=== PATIENT | female | born 1950 | race Caucasian/White ===

== ENCOUNTER 2017-08-19 05:28 | Emergency (ER) | payer OTHER ==
[~2017-08-19] VITALS: Ht 152.4 cm; Wt 90.7 kg
[2017-08-19] MEDS ORDERED: METF500 PO (05:42)
[2017-08-19] MEDS ORDERED: LISI5 PO (05:42)
[2017-08-19] MEDS ORDERED: FURO20 PO (05:42)
[2017-08-19] MEDS ORDERED: OMEPRAZOLE MAGN20 MG PO (05:43)
[2017-08-19] MEDS ORDERED: VENL25 PO (05:43)
[2017-08-19] MEDS ORDERED: POTCHL10ER PO (05:43)
[2017-08-19 06:17] LABS: BASOPHILS ABSOLUTE AUTO 0.05 K/mm3 (0.00-0.23); BASOPHILS PERCENT AUTO 1 % (0-2); EOSINOPHILS ABSOLUTE AUTO 0.23 K/mm3 (0.00-0.68); EOSINOPHILS PERCENT AUTO 3 % (0-6); Hematocrit 36.2 % (33.0-51.0); Hemoglobin 11.1 g/dL (11.5-16.0); IMMATURE GRAN ABSOLUTE AUTO 0.07 K/mm3 (0.00-0.10); IMMATURE GRAN PERCENT AUTO 1 % (0-1); LYMPHOCYTES ABSOLUTE AUTO 2.48 K/mm3 (0.84-5.20); LYMPHOCYTES PERCENT AUTO 31 % (21-46); MONOCYTES ABSOLUTE AUTO 0.69 K/mm3 (0.16-1.47); MONOCYTES PERCENT AUTO 9 % (4-13); Mean Corpuscular HGB 26.2 pg (26.0-34.0); Mean Corpuscular HGB Conc 30.7 g/dL (31.5-36.5); Mean Corpuscular Volume 85 fL (80-100); Mean Platelet Volume 10.6 fL (9.1-12.4); NEUTROPHILS ABSOLUTE AUTO 4.49 K/mm3 (1.96-9.15); NEUTROPHILS PERCENT AUTO 56 % (41-73); Platelet Count 346 K/mm3 (150-400); RDW Coefficient Variation 14.4 % (11.7-14.2); RDW Standard Deviation 44.5 fL (35.1-46.3); Red Blood Cell Count 4.24 M/mm3 (3.80-5.20); White Blood Cell Count 8.01 K/mm3 (4.00-11.30)
[2017-08-19 06:43] LABS: Alanine Aminotransfer (ALT/SGP 23 U/L (12-78); Albumin, Blood 3.3 g/dL (3.4-5.0); Albumin/Globulin Ratio 0.8 (0.8-1.8); Alk Phos 81 U/L (50-136); Anion Gap 7 mmol/L (6-16); Aspartate Aminotrans (AST/SGOT 11 U/L (12-37); Bilirubin, Total 0.2 mg/dL (0.1-1.0); Blood Urea Nitrogen 16 mg/dL (8-24); CO2, Blood 24 mmol/L (21-32); Calcium, Blood 8.8 mg/dL (8.5-10.1); Chloride, Blood 106 mmol/L (98-108); Creatinine, Blood 0.64 mg/dL (0.40-1.00); Glomerular Filtration Rate >60 (60-); Glucose, Blood 115 mg/dL (70-99); Potassium, Blood 4.2 mmol/L (3.5-5.5); Sodium, Blood 137 mmol/L (136-145); Total Protein, Blood 7.3 g/dL (6.4-8.2); Troponin I <0.015 ng/mL (0.000-0.040)
== END 2017-08-19 07:56 | disposition home or self-care (01) ==
LOC: ER 05:28
PROVIDERS: Emergency Medicine
DX: R60.0 Localized edema (principal); R07.89 Other chest pain; Z88.5 Allergy status to narcotic agent; Z79.899 Other long term (current) drug therapy; Z79.84 Long term (current) use of oral hypoglycemic drugs
CPT/HCPCS: 36415; 71046; 80053; 83880; 84484; 85025; 93005; 93010; 99284

== ENCOUNTER 2018-03-14 12:10 | Observation (INO) | payer OTHER ==
[~2018-03-14] VITALS: Ht 152.4 cm; Wt 108.5 kg
[~2018-03-14 12:10] MED LIST: FURO20 PO; LISI5 PO; METF500 PO; OMEPRAZOLE MAGN20 MG PO; POTCHL10ER PO; VENL25 PO
[2018-03-14 12:58] LABS: BASOPHILS ABSOLUTE AUTO 0.07 K/mm3 (0.00-0.23); BASOPHILS PERCENT AUTO 1 % (0-2); EOSINOPHILS ABSOLUTE AUTO 0.15 K/mm3 (0.00-0.68); EOSINOPHILS PERCENT AUTO 2 % (0-6); Hematocrit 37.5 % (33.0-51.0); Hemoglobin 11.8 g/dL (11.5-16.0); IMMATURE GRAN ABSOLUTE AUTO 0.09 K/mm3 (0.00-0.10); IMMATURE GRAN PERCENT AUTO 1 % (0-1); LYMPHOCYTES PERCENT AUTO 27 % (21-46); MONOCYTES ABSOLUTE AUTO 0.67 K/mm3 (0.16-1.47); MONOCYTES PERCENT AUTO 7 % (4-13); Mean Corpuscular HGB 26.5 pg (26.0-34.0); Mean Corpuscular HGB Conc 31.5 g/dL (31.5-36.5); Mean Corpuscular Volume 84 fL (80-100); Mean Platelet Volume 10.4 fL (9.1-12.4); NEUTROPHILS ABSOLUTE AUTO 5.86 K/mm3 (1.96-9.15); NEUTROPHILS PERCENT AUTO 63 % (41-73); Platelet Count 391 K/mm3 (150-400); RDW Coefficient Variation 14.8 % (11.7-14.2); RDW Standard Deviation 45.1 fL (35.1-46.3); Red Blood Cell Count 4.46 M/mm3 (3.80-5.20); White Blood Cell Count 9.34 K/mm3 (4.00-11.30)
[2018-03-14] MEDS ORDERED: HYDCHL25 PO (13:10)
[2018-03-14] MEDS ORDERED: VENL37.5 PO (13:10)
[2018-03-14] MEDS ORDERED: CONTRAVE ER 8-1 EACH PO (13:11)
[2018-03-14] MEDS ORDERED: TOPI50 PO (13:11)
[2018-03-14] MEDS ORDERED: Adipex-P37.5 M1 PO (13:12)
[2018-03-14 13:29] LABS: Alanine Aminotransfer (ALT/SGP 20 U/L (12-78); Albumin, Blood 3.5 g/dL (3.4-5.0); Albumin/Globulin Ratio 0.9 (0.8-1.8); Alk Phos 96 U/L (50-136); Anion Gap 7 mmol/L (6-16); Aspartate Aminotrans (AST/SGOT 9 U/L (12-37); Bilirubin, Total 0.5 mg/dL (0.1-1.0); Blood Urea Nitrogen 23 mg/dL (8-24); Bun/Creatinine Ratio 33.3 (12.0-20.0); CO2, Blood 26 mmol/L (21-32); Calcium, Blood 8.9 mg/dL (8.5-10.1); Chloride, Blood 105 mmol/L (98-108); Creatinine, Blood 0.69 mg/dL (0.40-1.00); Globulin, Blood 3.9 g/dL (2.2-4.0); Glomerular Filtration Rate >60 (60-); Glucose, Blood 118 mg/dL (70-99); Potassium, Blood 3.8 mmol/L (3.5-5.5); Sodium, Blood 138 mmol/L (136-145); Total Protein, Blood 7.4 g/dL (6.4-8.2)
[2018-03-14] MEDS ORDERED: LISI5 PO (17:53)
[2018-03-14] MEDS ORDERED: Prilosec Otc20 MG PO (17:53)
[2018-03-14] MEDS ORDERED: ASPI81CH PO (17:54)
[2018-03-15 04:55] LABS: Hematocrit 36.5 % (33.0-51.0); Hemoglobin 11.6 g/dL (11.5-16.0); Mean Corpuscular HGB 26.8 pg (26.0-34.0); Mean Corpuscular HGB Conc 31.8 g/dL (31.5-36.5); Mean Corpuscular Volume 84 fL (80-100); Mean Platelet Volume 10.3 fL (9.1-12.4); Platelet Count 387 K/mm3 (150-400); RDW Coefficient Variation 14.7 % (11.7-14.2); RDW Standard Deviation 45.6 fL (35.1-46.3); Red Blood Cell Count 4.33 M/mm3 (3.80-5.20); White Blood Cell Count 10.36 K/mm3 (4.00-11.30)
== END 2018-03-15 17:43 | disposition home or self-care (01) ==
LOC: ER 12:10 → MEDS 12:11
PROVIDERS: Emergency Medicine; Internal Medicine; Internal Medicine Gastroenterology
PROC: 0DBE8ZX Excision of Large Intestine, Via Natural or Artificial Opening Endoscopic, Diagnostic (ICD-10-PCS; principal; 2018-03-15 11:45)
DX: K63.3 Ulcer of intestine (principal); K57.30 Diverticulosis of large intestine without perforation or abscess without bleeding; K92.1 Melena; I10 Essential (primary) hypertension; R00.0 Tachycardia, unspecified; Z88.5 Allergy status to narcotic agent; Z79.899 Other long term (current) drug therapy; Z79.84 Long term (current) use of oral hypoglycemic drugs
CPT/HCPCS: 36415; 74176; 80053; 82272; 85025; 85027; 86850; 86900; 86901; 88305; 96374; 96376; 99285-25; G0378; J2250; J2405; J3010; J7120

== ENCOUNTER 2021-03-24 00:55 | Inpatient (IN) | payer OTHER ==
[~2021-03-24] VITALS: Ht 154.9 cm; Wt 107.9 kg
[~2021-03-24 00:55] MED LIST changes: +ASPI81CH PO; +Adipex-P37.5 M1 PO; +CONTRAVE ER 8-1 EACH PO; +HYDCHL25 PO; +Prilosec Otc20 MG PO; +TOPI50 PO; +VENL75ER PO
[2021-03-24 02:16] LABS: BASOPHILS ABSOLUTE AUTO 0.01 K/mm3 (0.00-0.23); BASOPHILS PERCENT AUTO 0 % (0-2); EOSINOPHILS PERCENT AUTO 0 % (0-6); Hematocrit 41.7 % (33.0-51.0); Hemoglobin 13.4 g/dL (11.5-16.0); Mean Corpuscular HGB 27.3 pg (26.0-34.0); Mean Corpuscular HGB Conc 32.1 g/dL (31.5-36.5); Mean Corpuscular Volume 85 fL (80-100); Mean Platelet Volume 10.7 fL (9.1-12.4); Platelet Count 221 K/mm3 (150-400); RDW Standard Deviation 46.8 fL (35.1-46.3)
[2021-03-24 02:25] LABS: IMMATURE GRAN ABSOLUTE AUTO 0.07 K/mm3 (0.00-0.10); IMMATURE GRAN PERCENT AUTO 1 % (0-1); LYMPHOCYTES ABSOLUTE AUTO 0.76 K/mm3 (0.84-5.20); LYMPHOCYTES PERCENT AUTO 11 % (21-46); MONOCYTES ABSOLUTE AUTO 0.52 K/mm3 (0.16-1.47); MONOCYTES PERCENT AUTO 8 % (4-13); NEUTROPHILS ABSOLUTE AUTO 5.44 K/mm3 (1.96-9.15); NEUTROPHILS PERCENT AUTO 80 % (41-73)
[2021-03-24 02:45] LABS: Alanine Aminotransfer (ALT/SGP 34 U/L (12-78); Albumin/Globulin Ratio 0.7 (0.8-1.8); Alk Phos 86 U/L (50-136); Anion Gap 4 mmol/L (6-16); Aspartate Aminotrans (AST/SGOT 42 U/L (12-37); Bilirubin, Total 0.3 mg/dL (0.1-1.0); Blood Urea Nitrogen 15 mg/dL (8-24); Bun/Creatinine Ratio 20.7 (12.0-20.0); CO2, Blood 26 mmol/L (21-32); Calcium, Blood 9.1 mg/dL (8.5-10.1); Chloride, Blood 104 mmol/L (98-108); Creatinine, Blood 0.73 mg/dL (0.40-1.00); Globulin, Blood 4.5 g/dL (2.2-4.0); Glomerular Filtration Rate >60 (60-); Glucose, Blood 151 mg/dL (70-99); Potassium, Blood 3.9 mmol/L (3.5-5.5); Sodium, Blood 134 mmol/L (136-145); Total Protein, Blood 7.5 g/dL (6.4-8.2); Troponin I <0.015 ng/mL (0.000-0.040)
[2021-03-24 07:41] LABS: BASOPHILS ABSOLUTE AUTO 0.01 K/mm3 (0.00-0.23); BASOPHILS PERCENT AUTO 0 % (0-2); EOSINOPHILS PERCENT AUTO 0 % (0-6); Hematocrit 41.6 % (33.0-51.0); Hemoglobin 13.3 g/dL (11.5-16.0); IMMATURE GRAN ABSOLUTE AUTO 0.05 K/mm3 (0.00-0.10); IMMATURE GRAN PERCENT AUTO 1 % (0-1); LYMPHOCYTES ABSOLUTE AUTO 1.25 K/mm3 (0.84-5.20); LYMPHOCYTES PERCENT AUTO 20 % (21-46); MONOCYTES ABSOLUTE AUTO 0.43 K/mm3 (0.16-1.47); MONOCYTES PERCENT AUTO 7 % (4-13); Mean Corpuscular HGB 27.3 pg (26.0-34.0); Mean Corpuscular Volume 85 fL (80-100); Mean Platelet Volume 10.5 fL (9.1-12.4); NEUTROPHILS ABSOLUTE AUTO 4.54 K/mm3 (1.96-9.15); NEUTROPHILS PERCENT AUTO 72 % (41-73); Platelet Count 216 K/mm3 (150-400); RDW Standard Deviation 47.2 fL (35.1-46.3); Red Blood Cell Count 4.87 M/mm3 (3.80-5.20); White Blood Cell Count 6.28 K/mm3 (4.00-11.30)
[2021-03-24 08:06] LABS: Alanine Aminotransfer (ALT/SGP 29 U/L (12-78); Albumin, Blood 2.9 g/dL (3.4-5.0); Albumin/Globulin Ratio 0.7 (0.8-1.8); Alk Phos 83 U/L (50-136); Anion Gap 5 mmol/L (6-16); Aspartate Aminotrans (AST/SGOT 42 U/L (12-37); Bilirubin, Total 0.3 mg/dL (0.1-1.0); Blood Urea Nitrogen 15 mg/dL (8-24); Bun/Creatinine Ratio 20.9 (12.0-20.0); CO2, Blood 27 mmol/L (21-32); Calcium, Blood 8.4 mg/dL (8.5-10.1); Chloride, Blood 104 mmol/L (98-108); Creatinine, Blood 0.72 mg/dL (0.40-1.00); Globulin, Blood 4.4 g/dL (2.2-4.0); Glomerular Filtration Rate >60 (60-); Glucose, Blood 133 mg/dL (70-99); Potassium, Blood 3.9 mmol/L (3.5-5.5); Sodium, Blood 136 mmol/L (136-145); Total Protein, Blood 7.3 g/dL (6.4-8.2)
--- NOTE | 2021-03-24 11:06 | NUR ---
makes needs known, call light with in reach, ate breakfast, reported to daughter richard [phone], patient has steady gait to the bathroom eith nc extension cord, vss, 7l o2 90%, pleasant to care, wctm
--- NOTE | 2021-03-24 19:16 | NUR ---
MAKES NEEDS KNOWN, CALL LIGHT WIHT IN REACH, REPORTS TYLENOL COVERED BACK PAIN TODAY, LS INSPIRATORY WHEEZES, WCTM
--- NOTE | 2021-03-25 05:44 | NUR ---
END OF SHIFT SUMMARY: AT AROUND 0420 PT HAD EPISODE OF ANXIETY. O2 SAT DROPPED TO 82% ON 7LNC. PT HYPERVENTILATING. PT PUT ON A NON REBREATHER AT 15L. SATS UP TO 92% HOSPITALIST NOTIFIED. ANTI ANXIETY MEDS GIVEN, COUGH MEDS GIVEN AND NASAL SPRAY FOR DRYNESS. PT RESTING AT THIS TIME.
[2021-03-25 05:45] LABS: Hematocrit 44.3 % (33.0-51.0); Mean Corpuscular HGB 27.2 pg (26.0-34.0); Mean Corpuscular HGB Conc 31.6 g/dL (31.5-36.5); Mean Corpuscular Volume 86 fL (80-100); Mean Platelet Volume 10.5 fL (9.1-12.4); Platelet Count 251 K/mm3 (150-400); RDW Standard Deviation 47.4 fL (35.1-46.3); Red Blood Cell Count 5.15 M/mm3 (3.80-5.20); White Blood Cell Count 5.92 K/mm3 (4.00-11.30)
[2021-03-25 06:13] LABS: Anion Gap 5 mmol/L (6-16); Blood Urea Nitrogen 19 mg/dL (8-24); Bun/Creatinine Ratio 27.8 (12.0-20.0); CO2, Blood 28 mmol/L (21-32); Calcium, Blood 9.2 mg/dL (8.5-10.1); Chloride, Blood 102 mmol/L (98-108); Creatinine, Blood 0.68 mg/dL (0.40-1.00); Glomerular Filtration Rate >60 (60-); Glucose, Blood 145 mg/dL (70-99); Potassium, Blood 3.5 mmol/L (3.5-5.5); Sodium, Blood 135 mmol/L (136-145)
--- NOTE | 2021-03-25 18:05 | NUR ---
MAKES NEEDS KNOW, GROIN FOLDS REDDENED AND MOIST, CREAM TO AREA, STAND BY ASSIST, SHOWERED TODAY, COMPLAINS OF BACK PAIN, MEDICATED WITH ROXYCODONE AND TYLENOL, VSS, WCTM
--- NOTE | 2021-03-26 05:06 | NUR ---
END OF SHIFT SUMMARY: PT ANXIUS AT BEGINNING OF SHIFT AND COMPLAINING OF DRY NOSE AND "THROAT SORE FROM COUGHING" PT GIVEN ANTI ANXIETY AND COUGH MEDS. PAIN MEDICINE GIVEN FOR BACK PAIN. PT IS RESTING COMFORTABLY AT THIS TIME.
--- NOTE | 2021-03-26 17:04 | NUR ---
SHIFT SUMMARY PATIENT ALERT AND ORIENTATED X4. PATIENT IS PLEASENT AND CALLS APPROPRIATELY. PATIENT WAS ON 8L 02 AT START OF SHIFT AND HAS BEEN CHANGED TO AN AIRVO AT 40LITERS AND 35 PERCENT. PATIENT SATTING LOW 90S ON NEW O2 SETTING. VITAL SIGNS REVIEWED. NO OTHER ACUTE CHANGES THIS SHIFT.
--- NOTE | 2021-03-27 05:43 | NUR ---
END OF SHIFT REPORT: PT IS A&OX4. PT CONTINUES TO DESAT TO 77-83% WHILE AT REST. RESPIRATORY NOTIFIED AND HOSPITALIST. ORDER FOR CPAP/BIPAP INITIATED. PT PUT ON CPAP 12 AT 80%. SATS AT 93-98% PT IS RESTING AFTER BEING GIVEN ANTIANXIETY MEDICINE.
--- NOTE | 2021-03-27 10:33 | NUR ---
TRANSER NOTE PATIENT TRANSFERRED FROM [facility] TO PCU 226. PATIENT TRANSFERRED DUE TO RESPIRATORY DISTRESS ON CPAP. PATIENT REPORT DONE AT BEDSIDE WITH LAMONT STRATTON.
[2021-03-27 11:11] LABS: Source, Urine Catheter
[2021-03-27 11:20] LABS: Appearance, Urine Clear (Clear); Blood, Urine Neg (Neg); Color, Urine Yellow (P-Yellow); Glucose Qualitative, Urine Neg (Neg); Ketones, Urine Neg (Neg); Leukocyte Esterase, Urine 1+ (Neg); Nitrite, Urine Neg (Neg); Protein, Urine 2+ (Neg); Urobilinogen, Urine 1+ (Normal)
[2021-03-27 11:43] LABS: Bilirubin, Urine 1+ (Neg)
[2021-03-27 11:44] LABS: Bacteria Few /hpf; Mucus Light (0-Heavy); Red Blood Cells, Urine 0-2 /hpf (0-2); Squamous Epithelial Cells Mod /hpf (Few)
[2021-03-27 12:51] LABS: Hematocrit 40.4 % (33.0-51.0); Hemoglobin 13.1 g/dL (11.5-16.0); Mean Corpuscular HGB 27.9 pg (26.0-34.0); Mean Corpuscular HGB Conc 32.4 g/dL (31.5-36.5); Mean Corpuscular Volume 86 fL (80-100); Mean Platelet Volume 10.7 fL (9.1-12.4); Platelet Count 316 K/mm3 (150-400); RDW Coefficient Variation 14.4 % (11.7-14.2); RDW Standard Deviation 45.4 fL (35.1-46.3)
[2021-03-27 12:57] LABS: Bicarbonate Venous 26.6 mmol/L (24.0-30.0); PCO2 Venous 49.9 mmHg (38-42); PO2 Venous 44.5 mmHg (38-42); pH Blood Venous 7.38 (7.34-7.37)
[2021-03-27 13:24] LABS: Magnesium, Blood 1.3 mg/dL (1.6-2.4)
[2021-03-27 13:25] LABS: Albumin, Blood 2.6 g/dL (3.4-5.0); Anion Gap 6 mmol/L (6-16); Blood Urea Nitrogen 24 mg/dL (8-24); Bun/Creatinine Ratio 29.1 (12.0-20.0); CO2, Blood 30 mmol/L (21-32); Calcium, Blood 9.7 mg/dL (8.5-10.1); Chloride, Blood 98 mmol/L (98-108); Creatinine, Blood 0.82 mg/dL (0.40-1.00); Glomerular Filtration Rate >60 (60-); Glucose, Blood 131 mg/dL (70-99); Phosphorus, Blood 3.3 mg/dL (2.5-4.9); Potassium, Blood 3.5 mmol/L (3.5-5.5); Sodium, Blood 134 mmol/L (136-145)
[2021-03-27 16:50] LABS: PCO2 Arterial 43.5 mmHg (35-45); PO2 Arterial 54.7 mmHg (80-100); pH Blood Arterial 7.44 (7.35-7.45)
--- NOTE | 2021-03-27 17:20 | NUR ---
TRANSFER INTO ICU FROM PCU THIS RN GAVE REPORT TO VIRAL AVILA. PT IS ON PRECEDEX 0.4. PT IS ON CPAP FOR TRANSFER WITH SATS 86-91%. POWERGLIDE TIA INFUSING. PT TRANSFERRED TO ICU 2 AND STAFF AT THE BEDSIDE WITH PT.
--- NOTE | 2021-03-27 18:58 | NUR ---
PT EMERGENTY TRANSFERED TO ICU 2 @ 1700. PT COVID+ ON CPAP WITH FIO2 100%-ABG WITH PO2 IN 50'S. DR. CHILDS SUMMONED TO THE BEDSIDE.1713: PT MED WITH VERSED 3 MG IVP IN PREP FOR RSI. 1718: PROPOFOL 70 MCG IVP G[address] BY DR. CHILDS IN PREP FOR RSI. 1720: ROCURONIUM 50 MG IVP GIVEN FOR RSI. 1723: PT NOT PARALYZED DESPITE ROCURONIUM-SPO2 69% AND PT BITING ON ETT-DIFFICULT TO VENTILATE. MED WITH FENTANYL 100 MCG IVP X1 AND VERSED 4 MG IVP X 1. ETT 8.0/ 23 @ LIP. AC 22, TV 300, PEEP 15, FIO2 100%-SATS TRENDING IN THE 70'S. PT BECAME HYPOTENSIVE-NS 1 LITER BOLUS GIVEN. LEVOPHED DRIP INITIATED-TITRATING TO MAP 60-65. RIGHT SUBCLAVIAN QUAD LUMEN CENTRAL LINE INSERTED BY DR. CHILDS. PORTABLE CXR DONE AND ETT AND RSC LINE PLACEMENT CONFIRMED. PT REMAINED HYPOXIC WITH SATS IN THE 70'S- ROCURONIUM DRIP INITIATED.PT PRONED AND SATS IMMEDIATELY UP TO UPPER 90'S.
--- NOTE | 2021-03-27 19:58 | NUR ---
Assumed care. Report recieved from pipe RN. Pt proned in bed, paralyzed and sedated on ventilator. Vent settings: AC/VC 26, TV350, Peep18, Fi02 80%. OG tube in place, low intermittent suction. Pt has R/IJ central line. IV pump settings: Rocuronium 5 mcg/kg/min, propofol 30 mcg/kg/min, precedex 0.7 mcg/kg/hr, levophed 2 mcg/min, NS 75 ml/hr. Pantoja catheter in place, draining brandon/yellow urine. No acute needs noted at this time, will continue to monitor.
[2021-03-27 20:24] LABS: PCO2 Arterial 45.1 mmHg (35-45); PO2 Arterial 91.6 mmHg (80-100); pH Blood Arterial 7.38 (7.35-7.45)
[2021-03-28 04:55] LABS: Hematocrit 41.5 % (33.0-51.0); Hemoglobin 13.1 g/dL (11.5-16.0); Mean Corpuscular HGB 27.1 pg (26.0-34.0); Mean Corpuscular HGB Conc 31.6 g/dL (31.5-36.5); Mean Corpuscular Volume 86 fL (80-100); Mean Platelet Volume 10.6 fL (9.1-12.4); Platelet Count 276 K/mm3 (150-400); RDW Coefficient Variation 14.5 % (11.7-14.2); RDW Standard Deviation 46.1 fL (35.1-46.3); Red Blood Cell Count 4.83 M/mm3 (3.80-5.20); White Blood Cell Count 15.03 K/mm3 (4.00-11.30)
[2021-03-28 05:17] LABS: Albumin, Blood 2.3 g/dL (3.4-5.0); Anion Gap 5 mmol/L (6-16); Blood Urea Nitrogen 17 mg/dL (8-24); Bun/Creatinine Ratio 22.9 (12.0-20.0); CO2, Blood 28 mmol/L (21-32); Calcium, Blood 8.6 mg/dL (8.5-10.1); Chloride, Blood 104 mmol/L (98-108); Creatinine, Blood 0.74 mg/dL (0.40-1.00); Glomerular Filtration Rate >60 (60-); Glucose, Blood 210 mg/dL (70-99); Magnesium, Blood 2.1 mg/dL (1.6-2.4); Phosphorus, Blood 2.6 mg/dL (2.5-4.9); Sodium, Blood 137 mmol/L (136-145)
--- NOTE | 2021-03-28 07:16 | NUR ---
Shift summary. Pt continues on ventilator, paralyzed, sedated. Ventilator settings: AC/VC 26/350/15/50%. OG tube in place, awaiting XRAY placement confirmation. R/IJ central line in place, IV pump settings: Rocuronium 5 mcg/kg/min, precedex 0.7 mcg/kg/hr, propofol 30 mcg/kg/min, levophed on SB, NS at 75 ml/hr. Pantoja catheter in place, draining brandon urine. Rectal thermometer in place, pt peak temp 101.5, placed fan in room, pt temp currently 100.4. See shift assessment for further details, report given to pipe STRATTON.
--- NOTE | 2021-03-28 08:38 | NUR ---
CARE ASSUMED 0700 Pt intubated and sedated. Vent settings: AC VC 26/350/14/50%, SPO2 94%. LS clear/dim. Pt currently proned. Propofol GTT 30 mcg/kg/min, precedex 0.7 mcg/kg/hr, and Rocuronium 5 mcg//kg/min. TOF 0/4, pts BIS monitor not reading, will attempt to fix again. Levophed on SB, MAP > 65. NS @ [address] Otero. OG tube to LIS. Temp martinez in place (brandon 200 ml of output), temp of 100.4. NSR HR 70's.
--- NOTE | 2021-03-28 18:17 | NUR ---
Shift Summary Pt intubated and sedated. Vent Settings: AC 26/300/14/75%, FIO2 > 90%. Propofol GTT 30 mcg/kg/min and Precedex 0.5 mcg/kg/h, and Rocuronium 5 mcg/kg/min. TOF is 0/4. BIS score 30's. HR 60's and BP stable. When patient unproned around 1227 and SPO2 decreased to 53%, Dr. Schafer at bedside and vent settings changed, FIO2 increased to 100%, PEEP increased from 10 to 14. Pt recovered quickly after changes to SPO2 96% Will report to oncoming shift. Spoke to patients daughter and updated twice.
--- NOTE | 2021-03-28 23:19 | NUR ---
ASSUMED CARE AT 1900 PT LAYING IN BED INTUBATED WITH VENT SETTINGS AC 26, TV 300, PEEP 14, FIO2 75%; SCANT SECREATIONS FROM ETT. PT SEDATED AND PARALIZED; ROCURONIUM INFUSING AT 5MCG/KG/MIN, TOF 0/4; PROPOFOL INFUSING AT 25MCG/KG/MIN, BIS MID 30'S; PRECEDEX INFUSING AT 0.5MCG/KG/HR. TEMP 101.3, ICE PACKS IN PLACE; PLAN TO GIVE MORE TYLENOL WHEN AVAILABLE. HR 60'S. SBP 130'S. PIVOT INFUSING AT 20ML/HR WITH 30ML WATER FLUSHES Q4HR. IBRAHIM IN PLACE AND DRAINING TO GRAVITY. RT SUBCLAVIAN CENTRAL LINE IN PLACE, DRESSING C/D/I. SEE SHIFT ASSESSMENT FOR FULL ASSESSMENT. PT PRONED AT 1999 WITH 2 PT'S, RT, AND THIS RN.
[2021-03-29 05:10] LABS: Hematocrit 39.9 % (33.0-51.0); Hemoglobin 12.3 g/dL (11.5-16.0); Mean Corpuscular HGB 27.1 pg (26.0-34.0); Mean Corpuscular HGB Conc 30.8 g/dL (31.5-36.5); Mean Corpuscular Volume 88 fL (80-100); Mean Platelet Volume 11.2 fL (9.1-12.4); Platelet Count 288 K/mm3 (150-400); RDW Coefficient Variation 14.6 % (11.7-14.2); RDW Standard Deviation 47.4 fL (35.1-46.3); Red Blood Cell Count 4.54 M/mm3 (3.80-5.20)
[2021-03-29 05:40] LABS: Anion Gap 2 mmol/L (6-16); Blood Urea Nitrogen 24 mg/dL (8-24); Bun/Creatinine Ratio 37.6 (12.0-20.0); CO2, Blood 31 mmol/L (21-32); Calcium, Blood 8.7 mg/dL (8.5-10.1); Chloride, Blood 108 mmol/L (98-108); Creatinine, Blood 0.64 mg/dL (0.40-1.00); Glomerular Filtration Rate >60 (60-); Glucose, Blood 238 mg/dL (70-99); Magnesium, Blood 2.4 mg/dL (1.6-2.4); Phosphorus, Blood 1.8 mg/dL (2.5-4.9); Potassium, Blood 3.7 mmol/L (3.5-5.5); Sodium, Blood 141 mmol/L (136-145)
[2021-03-29 06:07] LABS: BAND PERCENT MAN 11 % (0-8); BASOPHILS PERCENT MAN 0 % (0-2); EOSINOPHILS PERCENT MAN 0 % (0-6); LYMPHOCYTES ABSOLUTE MAN 0.75 K/mm3 (0.84-5.20); LYMPHOCYTES PERCENT MAN 7 % (21-46); MONOCYTES PERCENT MAN 1 % (4-13); MYELOCYTE PERCENT MAN 1 % (0-0); NEUTROPHILS ABSOLUTE MAN 9.82 K/mm3 (1.96-9.15); SEG NEUTROPHILS PERCENT MAN 80 % (41-73); TOTAL CELLS COUNTED 100
--- NOTE | 2021-03-29 06:15 | NUR ---
UPDATE NOTIFIED DR JANE OF [facility] 1.8 THIS AM. NEW ORDERS PROVIDED FOR 30MM OF POTASSIUM PHOS IV X1.
--- NOTE | 2021-03-29 06:25 | NUR ---
END OF SHIFT SUMMARY NO ACUTE EVENTS OVERNIGHT. PT CONT TO BE INTUBATED WITH VENT SETTINGS AC 26, TV 300, PEEP 14, FIO2 85%; SCANT TO NO ETT SECREATIONS NOTED; PT PRONED SINCE 1999. PT PARALIZED AND SEDATED; ROCURONIUM INFUSING AT 3MCG/KG/MIN, TOF 1/4; PROPOFOL INFUSING AT 15MCG/KG/MIN, BIS 35-55; PRECEDEX INFUSING AT 0.5MCG/KG/HR. MAX TEMP 101.4; PRN TYLENOL GIVEN AND HELPFUL, TEMP NOW 100.4. HR 70-80'S. SBP 120-130'S. PIVOT INFUSING VIA OG AT 30ML/HR (GOAL) WITH 30ML WATER FLUSHES Q4HR. IBRAHIM IN PLACE AND DRAINING TO GRAVITY. CENTRAL LINE TO RT SUBCLAVIAN DRESSING C/D/I. WILL REPORT TO AM RN WHEN AVAILABLE.
--- NOTE | 2021-03-29 07:30 | NUR ---
Received report from Theresa STRATTON. Patient is intubated, sedated, and paralyzed. She has 8.0 and 25 cm at teeth with vent settings of 26/300/80/14 and sats >90%. He has BIS 35-45 TO4 07/19. Patient has RIJ infusing Precedex at 0.5 mcg/kg/hr, Propofol 15 mcg/kg/min, NS TKO, Rocoironium at 3 mcg/min. She has 14Fr martinez draining to gravity light brandon colored urine. She has rectal temp probe with temp 100.2, ice packs in AC's bilaterally. She has OG in place with Pivot 1.5 at 30 ml/hr and 30 ml water flushes Q4. Patient proned until noon and no restraints in place.
--- NOTE | 2021-03-29 09:30 | NUR ---
Patient remains sedated and intubated. Dr Schafer and Dr Otero by and assessed with no new orders. VSS, See EMR. Patient remains proned and head to right side. Good urine output with green tint. No changes to vent or gtt's.
--- NOTE | 2021-03-29 10:00 | NUR ---
Dr Otero and Dr Schafer by and assessed patient and stopped Rocironium and bilateral soft wrist restraints applied. No changes to vent or any other gtt changes. VSS, see EMR. Patient remains proned.
--- NOTE | 2021-03-29 13:00 | NUR ---
Patient un-proned and needed to incease Propofol to 25 mcg/kg/min, Precedex to 0.7 mcg/kg/hr. FiO2 increased to 100% and sats 88-90%. Tongue swollen from proning. Repositioned to left side. Rt in room monitoring settings.
--- NOTE | 2021-03-29 16:00 | NUR ---
Patient has been doing well with increased sedation and adding Fentanyl. FiO2 at 95% with sats 94%. Propofol at 25 mcg/kg/min, Precedex at 0.7 mcg/kg/hr, NS TKO, Fentanyl at 50 mcg/hr. Vent settings at 20/300/95/14.
--- NOTE | 2021-03-29 18:30 | NUR ---
8.0 ET and 25 cm at teeth, Vent settings 20/300/95/14, and sats 95%. RIJ infusing Propofol at 25 mcg/kg/min, Fentanyl 50 mcg/hr, Precedex at 0.7 mcg/kg/hr, and NS TKO. Patient has good output through patent 14 fr martinez. Moderate secretions from ET and oral. CL dressing changed earlier on right upper chest.
--- NOTE | 2021-03-29 22:44 | NUR ---
DR CRESPO CALLED REGARDING PT'S FEVER OF 102.4 THAT IS NOT RESPONDING TO TYLENOL, ICE PACKS OR FAN. ORDER FOR IBUPROPHEN RECEIVED.
--- NOTE | 2021-03-30 01:30 | NUR ---
COOLING BLANKET PLACED ON PT.
[2021-03-30 05:01] LABS: BASOPHILS ABSOLUTE AUTO 0.03 K/mm3 (0.00-0.23); BASOPHILS PERCENT AUTO 0 % (0-2); EOSINOPHILS PERCENT AUTO 0 % (0-6); Hematocrit 39.3 % (33.0-51.0); Hemoglobin 11.8 g/dL (11.5-16.0); IMMATURE GRAN PERCENT AUTO 3 % (0-1); LYMPHOCYTES ABSOLUTE AUTO 0.72 K/mm3 (0.84-5.20); LYMPHOCYTES PERCENT AUTO 6 % (21-46); MONOCYTES PERCENT AUTO 8 % (4-13); Mean Corpuscular HGB 26.9 pg (26.0-34.0); Mean Corpuscular Volume 90 fL (80-100); Mean Platelet Volume 11.6 fL (9.1-12.4); NEUTROPHILS ABSOLUTE AUTO 10.26 K/mm3 (1.96-9.15); NEUTROPHILS PERCENT AUTO 83 % (41-73); Platelet Count 294 K/mm3 (150-400); RDW Coefficient Variation 14.6 % (11.7-14.2); RDW Standard Deviation 48.7 fL (35.1-46.3); Red Blood Cell Count 4.38 M/mm3 (3.80-5.20); White Blood Cell Count 12.41 K/mm3 (4.00-11.30)
[2021-03-30 05:19] LABS: Albumin, Blood 1.6 g/dL (3.4-5.0); Anion Gap 2 mmol/L (6-16); Blood Urea Nitrogen 33 mg/dL (8-24); Bun/Creatinine Ratio 45.5 (12.0-20.0); CO2, Blood 34 mmol/L (21-32); Calcium, Blood 8.4 mg/dL (8.5-10.1); Chloride, Blood 106 mmol/L (98-108); Creatinine, Blood 0.73 mg/dL (0.40-1.00); Glomerular Filtration Rate >60 (60-); Glucose, Blood 176 mg/dL (70-99); Magnesium, Blood 2.5 mg/dL (1.6-2.4); Phosphorus, Blood 1.1 mg/dL (2.5-4.9); Potassium, Blood 3.9 mmol/L (3.5-5.5); Sodium, Blood 142 mmol/L (136-145); Triglycerides 379 mg/dL (30-160)
--- NOTE | 2021-03-30 06:40 | NUR ---
DR. JANE NOTIFIED OF PHOS LEVEL 1.1. hE WILL ORDER HOS RIDER.
--- NOTE | 2021-03-30 06:43 | NUR ---
PT HAS TMAX OF 102.6. FEVER IS CONTROLLED WITH TYLENOL, IBUPROPHEN, ICE PACKS, FAN, AND COOLING BLANKET. PRECEDEX TITRATED DOWN TO 0.3MCG/KG/HR. TEMP IS NOW 101.3. FIO2 TITRATED DOWN TO 75%. MOM GIVEN, NO BM YET, BUT SMAL SMEAR ON SMITH. NO OTHER SIGNIFICANT CHANGES. WILL CONTINUE TO MONITOR AND REPORT TO [facility].
--- NOTE | 2021-03-30 08:00 | NUR ---
Received report from GILBERTO RN. Patient is intubated, sedated. She has 8.0 ET and 25cm at teeth with vent settings of 26/300/95/14 and sats >90%. Patient has 18 ga PowerGlide infusing Precedex at 0.3 mcg/kg/hr. She also has right subclavin CL infusing Propofol at 35 mcg/kg/min Fentanyl 50 mcg/hr, and NS TKO. She has martinez draining to gravity brandon urine. Frequent cough but clears with suctioning.
--- NOTE | 2021-03-30 10:00 | NUR ---
Patient has been rest with sedation and has had no real issues. No changes with vent or gtt's. Sats in the mid 90's.
--- NOTE | 2021-03-30 11:30 | NUR ---
No significant changes with paitient, vent settings or gtt's.
[2021-03-30 11:49] LABS: Vancomycin, Trough 3.8 ug/mL (5.0-10.0)
--- NOTE | 2021-03-30 13:30 | NUR ---
Patient conhtinues with cooling K pads andice packs and fever is slowly coming domn and is 100.1. Vent setting FiO2 65% and sats <90%. She has little to no purposeful movement to extremities with current sedation. VSS, See EMR.
--- NOTE | 2021-03-30 15:30 | NUR ---
No significant changes with patient, No changes to vent or gtts. and patient VSS.
--- NOTE | 2021-03-30 18:00 | NUR ---
Dr Schafer assessed patient prior to going oncall and no new orders. She has 8.0 ET and remains at 25 cm at teeth with current settings of 26/300/55/14 and sats 93% Cooling pads removed and temp remains at 99.5 and going to give dose of tyelnol. VSS, See EMR. Right subclain CL infusing Precedex at 0.3 mcg/kg/hr, Propofol at 35 mcg/kg/min, Fentanyl 50 mcg/hr, and NS TKO. Pantoja had roughly 600 ml's brandon coloroed urine. With current bowel protocol still no stool this shift.
--- NOTE | 2021-03-30 19:00 | NUR ---
REPORT RECEIVED FROM SHERLY STRATTON.
--- NOTE | 2021-03-30 20:00 | NUR ---
UPON INITIAL ASSESSMENT, PATIENT HAS PROPOFOL, FENTANYL, PRECEDEX GTTS RUNNING. TF IS AT GOAL. NS TO KVO FOR ANX. AND NS FOR CARRIER FOR FENTANYL.
[2021-03-31 04:59] LABS: Hematocrit 37.2 % (33.0-51.0); Hemoglobin 11.3 g/dL (11.5-16.0); Mean Corpuscular HGB 27.2 pg (26.0-34.0); Mean Corpuscular HGB Conc 30.4 g/dL (31.5-36.5); Mean Corpuscular Volume 90 fL (80-100); Mean Platelet Volume 11.5 fL (9.1-12.4); Platelet Count 264 K/mm3 (150-400); RDW Coefficient Variation 14.4 % (11.7-14.2); RDW Standard Deviation 47.4 fL (35.1-46.3); Red Blood Cell Count 4.15 M/mm3 (3.80-5.20); White Blood Cell Count 12.48 K/mm3 (4.00-11.30)
[2021-03-31 05:41] LABS: BAND PERCENT MAN 7 % (0-8); BASOPHILS PERCENT MAN 0 % (0-2); EOSINOPHILS PERCENT MAN 0 % (0-6); LYMPHOCYTES ABSOLUTE MAN 0.74 K/mm3 (0.84-5.20); LYMPHOCYTES PERCENT MAN 6 % (21-46); MONOCYTES ABSOLUTE MAN 0.74 K/mm3 (0.16-1.47); MONOCYTES PERCENT MAN 6 % (4-13); MYELOCYTE ABSOLUTE MAN 0.37 K/mm3 (0.00-0.00); MYELOCYTE PERCENT MAN 3 % (0-0); SEG NEUTROPHILS PERCENT MAN 78 % (41-73); TOTAL CELLS COUNTED 100
[2021-03-31 05:47] LABS: Anion Gap 3 mmol/L (6-16); Blood Urea Nitrogen 34 mg/dL (8-24); CO2, Blood 36 mmol/L (21-32); Calcium, Blood 8.3 mg/dL (8.5-10.1); Chloride, Blood 103 mmol/L (98-108); Creatinine, Blood 0.68 mg/dL (0.40-1.00); Glomerular Filtration Rate >60 (60-); Glucose, Blood 145 mg/dL (70-99); Magnesium, Blood 2.1 mg/dL (1.6-2.4); Phosphorus, Blood 1.6 mg/dL (2.5-4.9); Potassium, Blood 3.5 mmol/L (3.5-5.5); Sodium, Blood 142 mmol/L (136-145)
--- NOTE | 2021-03-31 06:52 | NUR ---
2 RN CHECK WITH FENTANYL. 28ML VIAL. AMARILIS [employer]LM[employer] AND [employer] LAW ENFORCEMENT AGENT. 339 CLEARED FROM PUMP
--- NOTE | 2021-03-31 07:22 | NUR ---
END OF SHIFT NOTE: CHANGES DURING SHIFT: - Beginning of shift patient only moved LLE to withidraw from pain, end of shift patient is able to move randomly to pain but not follow commands. - Increased propofol throughout shift. - Still no BM
--- NOTE | 2021-03-31 13:49 | NUR ---
AM ASSESSMENT: PT REMAINS INTUBATED, SEDATED, AND RESTRAINED. PT OPENS EYES TO VERBAL, BUT DOES NOT FOLLOW COMMANDS. PT VERY AGITATED WITH ORAL CARE AND POSITIONING. PROPOFOL DRIP @ 40 MCG/KG/MIN, PRECEDEX @ 0.5 MCG/KG/MIN, AND FENTANY @ 50 MCG/HR. PT MED WITH ATIVAN 1 MG IVP FOR AGITATION. PT ASYNCHRONOUS WITH VENT WHEN AGITATED AND USING ACCESSORY MUSCLES AND ABDOMEN FOR RESPIRATION. LUNGS DIMINISHED RIGHT>LEFT. SATS DROPPED TO 80'S. ETT SUCTION PRODUCTIVE OF MODERATE AMOUNT OF THICK, BLOOD TINGED SPUTUM-SPUTUM SENT. VENT:AC/VC 2, TV300, PEEP 14, FIO2 TITRATED UP TO 75% TO MAINTAIN SATS>90%. PT ABDOMEN IS OBESE AND SOFT.WITH HYPOACTIVE BT'S-TOLERATING OGTF WELL. IBRAHIM TO BSD WITH ADEQUATE AMOUNT OF YELLOW URINE TO BSD.
--- NOTE | 2021-03-31 13:57 | NUR ---
1030 ASSESSMENT: DR. CRUZ IN TO SEE PT. PEEP DECREASED TO 12 AND FIO2 DECREASED TO 65%. PT BECAME VERY AGITATED AND SATS DROPPED TO 70'S. MED WITH ATIVAN 2 MG IVP AND FIO2 TITRATED UP TO 100% TO MAINTAIN SATS>90% PT DAUGHTER UPDATED TO CURRENT STATUS AND PLAN OF CARE. KEITH FROM PALLIATIVE CARE FACILITATED HOLDING THE PHONE TO PT EAR SO THAT PT DAUGHTER COULD TALK TO HER.
--- NOTE | 2021-03-31 14:07 | NUR ---
1200 ASSESSMENT: OGTF NEW GOAL OF 20 CC/HR. PT RESTING QUIETLY ON VENT WHEN NOT DISTURBED. PT REMAINS FEBRILE AND COOLING BLANKET IS IN PLACE.
--- NOTE | 2021-03-31 16:39 | NUR ---
PT RESTING QUIETLY ON VENT. SATWS 94% ON FIO2 80%. LUNGS COARSE TO UPPER LOBES AND DIMINISHED IN THE BASES. NO ETT SECRETIONS. PT REMAINS FEBRILE-TEMP 102.2-TYLENOL GIVEN PER OGT AND COOLING BLANKET HAS REMAINED IN PLACE THROUGH OUT THE SHIFT.
--- NOTE | 2021-03-31 18:49 | NUR ---
PT REMAINS FEBRILE DESPITE COOLING BLANKET AND TYLENOL. DR. CRUZ AWARE. MAINTAINS SATS>90% ON FIO2 80%-PEEP STILL @ 12. NO ACUTE DISTRESS NOTED AT THIS TIME.WILL REPORT TO ONCOMING SHIFT.
--- NOTE | 2021-04-01 00:17 | NUR ---
DR CRESPO IS UPDATED WITH INCREASED FIO2 NEEDS. MAY INCREASE PEEP BACK UP TO 14 IF NEEDED.
[2021-04-01 04:19] LABS: Hematocrit 37.5 % (33.0-51.0); Hemoglobin 11.4 g/dL (11.5-16.0); Mean Corpuscular HGB 27.3 pg (26.0-34.0); Mean Corpuscular HGB Conc 30.4 g/dL (31.5-36.5); Mean Corpuscular Volume 90 fL (80-100); Mean Platelet Volume 11.6 fL (9.1-12.4); NRBC ABSOLUTE 0.03 K/mm3 (0.00-0.02); NRBC Auto 0.2 /100 WBC (0.0-0.2); Platelet Count 242 K/mm3 (150-400); RDW Coefficient Variation 14.2 % (11.7-14.2); RDW Standard Deviation 46.5 fL (35.1-46.3); Red Blood Cell Count 4.17 M/mm3 (3.80-5.20); White Blood Cell Count 14.86 K/mm3 (4.00-11.30)
--- NOTE | 2021-04-01 04:30 | NUR ---
PT'S DAUGHTER IS UPDATED BY PHONE.
[2021-04-01 04:38] LABS: Albumin, Blood 1.6 g/dL (3.4-5.0); Anion Gap 3 mmol/L (6-16); Blood Urea Nitrogen 30 mg/dL (8-24); CO2, Blood 37 mmol/L (21-32); Calcium, Blood 8.5 mg/dL (8.5-10.1); Chloride, Blood 103 mmol/L (98-108); Creatinine, Blood 0.64 mg/dL (0.40-1.00); Glomerular Filtration Rate >60 (60-); Glucose, Blood 156 mg/dL (70-99); Phosphorus, Blood 2.3 mg/dL (2.5-4.9); Potassium, Blood 3.4 mmol/L (3.5-5.5); Sodium, Blood 143 mmol/L (136-145)
[2021-04-01 04:52] LABS: BAND PERCENT MAN 6 % (0-8); BASOPHILS PERCENT MAN 0 % (0-2); EOSINOPHILS ABSOLUTE MAN 0.14 K/mm3 (0.00-0.68); EOSINOPHILS PERCENT MAN 1 % (0-6); LYMPHOCYTES ABSOLUTE MAN 0.59 K/mm3 (0.84-5.20); LYMPHOCYTES PERCENT MAN 4 % (21-46); METAMYELOCYTE ABSOLUTE MAN 0.44 K/mm3 (0.00-0.00); METAMYELOCYTE PERCENT MAN 3 % (0-0); MONOCYTES ABSOLUTE MAN 1.18 K/mm3 (0.16-1.47); MONOCYTES PERCENT MAN 8 % (4-13); MYELOCYTE ABSOLUTE MAN 0.14 K/mm3 (0.00-0.00); MYELOCYTE PERCENT MAN 1 % (0-0); NEUTROPHILS ABSOLUTE MAN 12.33 K/mm3 (1.96-9.15); SEG NEUTROPHILS PERCENT MAN 77 % (41-73); TOTAL CELLS COUNTED 100
--- NOTE | 2021-04-01 06:30 | NUR ---
PT REQUIRES INCREASE OF FIO2 FROM 80% TO 100% OVERNIGHT. SHE DOES NOT TOLERATE REPOSITIONING OR ADL'S WITHOUT DESATURATING. TEMPERATURE RANGES FROM 100.0 TO 96.8. COOLING BLANKET AND FANS USED. NO OTHER SIGNIFIACNT CHANGES NOTED. WILL CONTINUE TO MONITOR AND REPORT TO ONCOMING SHIFT.
--- NOTE | 2021-04-01 09:17 | NUR ---
Assumed care at 0700. Pt intubated and sedated with propofol, precedex and fentanyl. Tube is a #8 at 25 @ the teeth. Vent settings are 26/300/12/100%. Pt is very sensitive to any care or movement; her oxygen plummets quickly. She does not withdraw to painful stimulus, perrla is 2mm bilat. Very minimal gag and cough. No bowel movement in awhile either; all prns given. TF at goal.
[2021-04-01 11:39] LABS: Vancomycin, Trough 14.3 ug/mL (5.0-10.0)
--- NOTE | 2021-04-01 15:56 | NUR ---
attempted to edit order time and dates on restraint management but [facility] would not let this rn edit her own documentation
--- NOTE | 2021-04-01 18:22 | NUR ---
AT END OF SHIFT PATIENT IS DOWN IN SEDATION. SHE IS NOW AT PROPOFOL OF 35, PRECEDEX 0.5 AND FENTANYL AT 50. VENT SETTINGS ARE ALSO CHANGED TO 26/300/14/85% PT IS TOLERATING CARE AND TURNS BETTER THAN THIS MORNING. HER OXYGENATION STILL DROPS BUT JUST TO MID 80S INSTEAD OF MID 70S AND SHE RECOVERS MORE QUICKLY WELL. DAUGHTER UPDATED BY MYSELF AT 1030 THIS AM. SHE CALLED UPSET LATER IN THE AFTERNOON WANTING TO TALK WITH A DOCTOR AND STATING THAT SHE HASNT BEEN UPDATED ALL DAY. DR. CONNORS NOTIFIED.
[2021-04-02 04:27] LABS: Base Excess Venous 13.8 mmol/L; Bicarbonate Venous 35.6 mmol/L (24.0-30.0); PCO2 Venous 54.6 mmHg (38-42); PO2 Venous 60.7 mmHg (38-42); pH Blood Venous 7.45 (7.34-7.37)
[2021-04-02 04:35] LABS: BASOPHILS ABSOLUTE AUTO 0.09 K/mm3 (0.00-0.23); BASOPHILS PERCENT AUTO 1 % (0-2); EOSINOPHILS PERCENT AUTO 0 % (0-6); IMMATURE GRAN ABSOLUTE AUTO 1.62 K/mm3 (0.00-0.10); IMMATURE GRAN PERCENT AUTO 9 % (0-1); LYMPHOCYTES PERCENT AUTO 9 % (21-46); MONOCYTES ABSOLUTE AUTO 1.45 K/mm3 (0.16-1.47); MONOCYTES PERCENT AUTO 8 % (4-13); Mean Corpuscular HGB Conc 29.7 g/dL (31.5-36.5); Mean Corpuscular Volume 91 fL (80-100); Mean Platelet Volume 11.5 fL (9.1-12.4); NEUTROPHILS ABSOLUTE AUTO 14.24 K/mm3 (1.96-9.15); NEUTROPHILS PERCENT AUTO 75 % (41-73); NRBC ABSOLUTE 0.04 K/mm3 (0.00-0.02); NRBC Auto 0.2 /100 WBC (0.0-0.2); Platelet Count 239 K/mm3 (150-400); RDW Coefficient Variation 13.9 % (11.7-14.2); RDW Standard Deviation 46.8 fL (35.1-46.3); Red Blood Cell Count 4.08 M/mm3 (3.80-5.20)
[2021-04-02 04:54] LABS: BAND PERCENT MAN 3 % (0-8); BASOPHILS PERCENT MAN 0 % (0-2); EOSINOPHILS PERCENT MAN 0 % (0-6); LYMPHOCYTES ABSOLUTE MAN 1.71 K/mm3 (0.84-5.20); LYMPHOCYTES PERCENT MAN 9 % (21-46); METAMYELOCYTE ABSOLUTE MAN 1.14 K/mm3 (0.00-0.00); METAMYELOCYTE PERCENT MAN 6 % (0-0); MONOCYTES ABSOLUTE MAN 0.38 K/mm3 (0.16-1.47); MONOCYTES PERCENT MAN 2 % (4-13); NEUTROPHILS ABSOLUTE MAN 15.85 K/mm3 (1.96-9.15); SEG NEUTROPHILS PERCENT MAN 80 % (41-73); TOTAL CELLS COUNTED 100
[2021-04-02 04:57] LABS: Albumin, Blood 1.6 g/dL (3.4-5.0); Anion Gap 3 mmol/L (6-16); Blood Urea Nitrogen 34 mg/dL (8-24); Bun/Creatinine Ratio 50.4 (12.0-20.0); CO2, Blood 36 mmol/L (21-32); Calcium, Blood 8.4 mg/dL (8.5-10.1); Chloride, Blood 102 mmol/L (98-108); Creatinine, Blood 0.68 mg/dL (0.40-1.00); Glomerular Filtration Rate >60 (60-); Glucose, Blood 123 mg/dL (70-99); Phosphorus, Blood 2.1 mg/dL (2.5-4.9); Potassium, Blood 3.7 mmol/L (3.5-5.5); Sodium, Blood 141 mmol/L (136-145)
--- NOTE | 2021-04-02 06:30 | NUR ---
PT REMAINS IN PRONE POSITION OVERNIGHT. FIO2 DECREASED TO 75%. NO OTHER SIGNIFICANT CHANGES NOTED. WILL CONTINUE TO MONITOR AND REPORT TO ONCOMING SHIFT.
--- NOTE | 2021-04-02 10:39 | NUR ---
Care Assumed 0700 Pt intubated and sedated. Propofol 35 mcg/kg/min and Precedex 0.5 mcg/kg/hr, Fentanyl GTT 50 mcg/hr. Pt slightly grimaces during oral care. Currently proned. Unable to follow commands or open eyes. Vent Settings: AC/VC 26/300/14/75%, 8.0 ETT 25 @ the gum. LS clear/dim. BP stable. OG tube in place with TF @ GOAL. SWB in place.
--- NOTE | 2021-04-02 18:11 | NUR ---
Shift Summary Vent settings: AC 26/300/14/75%. Propofol GTT 35 MCG/KG/MIN and Precedex .5 mcg/kg/hr, Fentanyl GTT at 50 mcg/hr. Pt grimaces during oral care but not opening eyes. Pt unproned successfully without destating. Spoke to patients daughter twice today and updated on care. Dr. Childs also updated pts daughter. Pantoja in place. OG tube in place with TF @ goal. No other changes T/O shift.
--- NOTE | 2021-04-02 19:15 | NUR ---
ASSUMPTION OF CARE RECEIVED REPORT FROM CHERELLE STRATTON. ASSUMED CARE OF PATIENT. PATIENT INTUBATED, SEDATED, TF AT GOAL INFUSING VIA OG. IBRAHIM PATENT AND DRAINING RECTAL THERMOMETER PRESENT. WILL REVIEW ORDERS AND TREAT PRESCRIBED.
--- NOTE | 2021-04-03 | NUR ---
REASSESSMENT NO ACUTE CHANGES FROM INITIAL ASSESSMENT. PATIENT REMAINS PRONED. FEBRILE, TYLENOL GIVEN WITH NO CHANGES. ICE PACKS PLACED TO PATIENT'S SIDES, WILL MONITOR THE RESULTS. VITALS STABLE. VENT SETTINGS UNCHANGED. TF REMAIN TO GOAL WITH 10ML RESIDUALS REFED.
--- NOTE | 2021-04-03 04:00 | NUR ---
REASSESSMENT NO ACUTE CHANGES FROM PREVIOUS ASSESSMENT. PATIENT REMAINS PRONED, VENT SETTINGS AND SEDATION CONTINUE THE SAME. WILL CONTINUE TO MONITOR.
[2021-04-03 05:02] LABS: Hematocrit 35.5 % (33.0-51.0); Hemoglobin 10.7 g/dL (11.5-16.0); Mean Corpuscular HGB 27.4 pg (26.0-34.0); Mean Corpuscular HGB Conc 30.1 g/dL (31.5-36.5); Mean Corpuscular Volume 91 fL (80-100); Mean Platelet Volume 11.7 fL (9.1-12.4); Platelet Count 244 K/mm3 (150-400); RDW Coefficient Variation 13.8 % (11.7-14.2); RDW Standard Deviation 45.1 fL (35.1-46.3); Red Blood Cell Count 3.91 M/mm3 (3.80-5.20); White Blood Cell Count 18.51 K/mm3 (4.00-11.30)
[2021-04-03 05:24] LABS: Albumin, Blood 1.6 g/dL (3.4-5.0); Anion Gap 1 mmol/L (6-16); Blood Urea Nitrogen 33 mg/dL (8-24); Bun/Creatinine Ratio 53.8 (12.0-20.0); CO2, Blood 35 mmol/L (21-32); Calcium, Blood 8.9 mg/dL (8.5-10.1); Chloride, Blood 104 mmol/L (98-108); Creatinine, Blood 0.61 mg/dL (0.40-1.00); Glomerular Filtration Rate >60 (60-); Glucose, Blood 127 mg/dL (70-99); Phosphorus, Blood 1.9 mg/dL (2.5-4.9); Potassium, Blood 4.3 mmol/L (3.5-5.5); Sodium, Blood 140 mmol/L (136-145)
[2021-04-03 05:33] LABS: BAND PERCENT MAN 2 % (0-8); BASOPHILS ABSOLUTE MAN 0.18 K/mm3 (0.00-0.23); BASOPHILS PERCENT MAN 1 % (0-2); EOSINOPHILS ABSOLUTE MAN 0.18 K/mm3 (0.00-0.68); EOSINOPHILS PERCENT MAN 1 % (0-6); LYMPHOCYTES ABSOLUTE MAN 1.66 K/mm3 (0.84-5.20); LYMPHOCYTES PERCENT MAN 9 % (21-46); METAMYELOCYTE ABSOLUTE MAN 0.18 K/mm3 (0.00-0.00); METAMYELOCYTE PERCENT MAN 1 % (0-0); MONOCYTES ABSOLUTE MAN 0.37 K/mm3 (0.16-1.47); MONOCYTES PERCENT MAN 2 % (4-13); NEUTROPHILS ABSOLUTE MAN 15.91 K/mm3 (1.96-9.15); SEG NEUTROPHILS PERCENT MAN 84 % (41-73); TOTAL CELLS COUNTED 100
--- NOTE | 2021-04-03 06:23 | NUR ---
SHIFT SUMMARY NO ACUTE CHANGES. PATIENT PRONED AT 1999, TOLERATED WELL. TURNED SIDE TO SIDE FOR COMFORT EVERY 2 HOURS. SEDATION UNCHANGED, TOLERATING VENT WELL. PHOS 1.9, REPLACEMENT ORDERED. VITALS STALBE. VNET SETTINGS UNCHANGED THROUGH SHIFT. FEBRILE, TREATED WITH TYLENOL, ICE PACKS AND FAN IN PLACE. WILL CONTINUE TO MONITOR AND REPORT TO ONCOMING RN.
--- NOTE | 2021-04-03 10:05 | NUR ---
ASSUMED CARE REPORT FROM RODRIGUEZ STRATTON AT 0700. PT INTUBATED, SEDATED AND PRONED. VENT SETTINGS AC/VC 26/300/14/70%. LUNGS DIM IN BASES. PROPOFOL, PRECEDEX AND FENTANYL GTT INFUSING FOR PAIN AND SEDATION. PT NOT RESPONSIVE TO PAINFUL STIMULI. TUBE FEEDS INFUSING AT GOAL. PT FEBRILE, ICE PACKS AND FAN IN PLACE. IBRAHIM PATENT, DRAINING TO GRAVITY. BP STABLE. SR, RATE 70'S. PLAN TO SUPINE AT 1200. WILL CONTINUE TO MONITOR.
--- NOTE | 2021-04-03 17:56 | NUR ---
SHIFT SUMMARY PT REMAINS INTUBATED AND SEDATED. VENT SETTINGS AC/VC 26/300/14/65%. PT SUPINE AT 1200. TOLERATED WELL. PROPOFOL, PRECEDEX AND FENTANYL GTT CONTINUE FOR SEDATION AND PAIN. PT UNRESPONSIVE TO PAINFUL STIMULI. OCCASIONAL COUGH c CARE. LUNGS CLEAR. HOLSTER REPOSITIONED BY RT. REDNESS AND BREAKDOWN NOTED AT SEPTUM. ABD OBESE, SOFT, NON TENDER. HYPOACTIVE BT. IBRAHIM PATENT, DRAINING TO GRAVITY. CVC TO RIJ, DRESSING C/D/I. POWERGLIDE TO LUE. TEMP 100.2. BP STABLE. SR, 60'S. WILL CONTINUE TO MONITOR UNTIL REPORT TO ONCOMING NURSE.
--- NOTE | 2021-04-03 21:27 | NUR ---
ASSUMPTION OF CARE Pt intubated and sedated. Propofol 35.cg/kg/min, Precedex 0.5mcg/kg/hr, Fentanyl 50mcg/hr. Grimacing with oral care, cough reflex present. Vent: AC 26/300/14/65%, SpO2 93%. Lung sounds diminished throughout. Pt proned at 1999, tolerated well. HR sinus in 70's, normotensive, SBP 150's. OG in place with Pivot at goal of 20ml/hr, 0ml residual. Pantoja patent, draining brandon urine. Febrile at 99.9F. Orders reviewed and will treat as prescribed.
[2021-04-04 06:17] LABS: Hemoglobin 10.4 g/dL (11.5-16.0); Mean Corpuscular HGB 27.1 pg (26.0-34.0); Mean Corpuscular HGB Conc 29.7 g/dL (31.5-36.5); Mean Corpuscular Volume 91 fL (80-100); Mean Platelet Volume 11.9 fL (9.1-12.4); NRBC ABSOLUTE 0.02 K/mm3 (0.00-0.02); NRBC Auto 0.1 /100 WBC (0.0-0.2); Platelet Count 243 K/mm3 (150-400); RDW Coefficient Variation 13.9 % (11.7-14.2); RDW Standard Deviation 45.7 fL (35.1-46.3); Red Blood Cell Count 3.84 M/mm3 (3.80-5.20); White Blood Cell Count 16.11 K/mm3 (4.00-11.30)
[2021-04-04 06:33] LABS: Anion Gap 1 mmol/L (6-16); Blood Urea Nitrogen 29 mg/dL (8-24); Bun/Creatinine Ratio 53.1 (12.0-20.0); CO2, Blood 34 mmol/L (21-32); Chloride, Blood 105 mmol/L (98-108); Creatinine, Blood 0.55 mg/dL (0.40-1.00); Glomerular Filtration Rate >60 (60-); Glucose, Blood 129 mg/dL (70-99); Potassium, Blood 4.2 mmol/L (3.5-5.5); Sodium, Blood 140 mmol/L (136-145)
--- NOTE | 2021-04-04 06:34 | NUR ---
Pt remains intubated and sedated. Propofol, Precedex and Fentanyl remain unchanged. Pt has cough reflex, does not respond to painful stimuli. Vent remains unchanged, AC: 26/300/14/65%, SpO2 95%. Lung sounds diminished throughout, moderate amount of thick, villaseñor/bloody secretions with ETT suction. Pt has an abraision to septum and on tongue. HR normal sinus in 60's, BP remained stable with MAP >65. OG with tube feed at goal of 20ml/hr, residuals minimum throughout shift. Pantoja patent, draining clear, brandon urine. Pt febrile, TMAX of 100.7, now 99.5. Daughter, Zulma updated this morning at 0345. Will give report to oncoming RN.
[2021-04-04 06:39] LABS: BAND PERCENT MAN 3 % (0-8); BASOPHILS PERCENT MAN 0 % (0-2); EOSINOPHILS PERCENT MAN 0 % (0-6); LYMPHOCYTES PERCENT MAN 5 % (21-46); MONOCYTES ABSOLUTE MAN 0.64 K/mm3 (0.16-1.47); MONOCYTES PERCENT MAN 4 % (4-13); MYELOCYTE ABSOLUTE MAN 0.32 K/mm3 (0.00-0.00); MYELOCYTE PERCENT MAN 2 % (0-0); NEUTROPHILS ABSOLUTE MAN 14.33 K/mm3 (1.96-9.15); SEG NEUTROPHILS PERCENT MAN 86 % (41-73); TOTAL CELLS COUNTED 100
--- NOTE | 2021-04-04 19:30 | NUR ---
ASSUMPTION OF CARE RECEIVED REPORT FROM SIOMARA STRATTON, ASSUMED CARE OF PATIENT. PATIENT SUPINE AT THIS TIME, VENTED AND SEDATED. VENT SETTINGS AC/VC 26/300/14/60% WITH 02 SATS GREATER THAN 90%. SEDATED WITH PROPOFOL, PRECEDEX AND FENTANYL. OG WITH TF AT GOAL OF 25ML/HR. IBRAHIM DRAINING SHELLEY URINE. VITALS STABLE AT THIS TIME, RECTAL PROBE THERMOMETER READING TEMP 99.1. WILL REVIEW ORDERS AND TREAT PRESCRIBED.
[2021-04-05 03:44] LABS: Hematocrit 34.4 % (33.0-51.0); Hemoglobin 10.3 g/dL (11.5-16.0); Mean Corpuscular HGB 27.2 pg (26.0-34.0); Mean Corpuscular HGB Conc 29.9 g/dL (31.5-36.5); Mean Corpuscular Volume 91 fL (80-100); Mean Platelet Volume 11.7 fL (9.1-12.4); NRBC ABSOLUTE 0.03 K/mm3 (0.00-0.02); NRBC Auto 0.2 /100 WBC (0.0-0.2); Platelet Count 253 K/mm3 (150-400); Red Blood Cell Count 3.78 M/mm3 (3.80-5.20); White Blood Cell Count 15.96 K/mm3 (4.00-11.30)
[2021-04-05 04:06] LABS: Albumin, Blood 1.7 g/dL (3.4-5.0); Anion Gap 2 mmol/L (6-16); Blood Urea Nitrogen 33 mg/dL (8-24); Bun/Creatinine Ratio 70.1 (12.0-20.0); CO2, Blood 35 mmol/L (21-32); Calcium, Blood 8.7 mg/dL (8.5-10.1); Chloride, Blood 105 mmol/L (98-108); Creatinine, Blood 0.47 mg/dL (0.40-1.00); Glomerular Filtration Rate >60 (60-); Glucose, Blood 129 mg/dL (70-99); Phosphorus, Blood 2.4 mg/dL (2.5-4.9); Sodium, Blood 142 mmol/L (136-145)
[2021-04-05 04:59] LABS: BAND PERCENT MAN 4 % (0-8); BASOPHILS PERCENT MAN 0 % (0-2); EOSINOPHILS PERCENT MAN 0 % (0-6); LYMPHOCYTES ABSOLUTE MAN 1.43 K/mm3 (0.84-5.20); LYMPHOCYTES PERCENT MAN 9 % (21-46); METAMYELOCYTE ABSOLUTE MAN 0.63 K/mm3 (0.00-0.00); METAMYELOCYTE PERCENT MAN 4 % (0-0); MONOCYTES ABSOLUTE MAN 1.43 K/mm3 (0.16-1.47); MONOCYTES PERCENT MAN 9 % (4-13); MYELOCYTE ABSOLUTE MAN 0.47 K/mm3 (0.00-0.00); MYELOCYTE PERCENT MAN 3 % (0-0); NEUTROPHILS ABSOLUTE MAN 11.97 K/mm3 (1.96-9.15); SEG NEUTROPHILS PERCENT MAN 71 % (41-73); TOTAL CELLS COUNTED 100
--- NOTE | 2021-04-05 06:24 | NUR ---
SHIFT SUMMARY PATIENT REMAINED PRONED THROUGHOUT SHIFT AND TOLERATED WELL. PROPOFOL IS NOW AT 35MCG/KG/MIN AND PRECEDEX @ 0.7MCG/KG/HR; FENTANYL ENVELOPE PATTERNMAKER INF @ 50MCG/HR AND NS TKO. VHP REMAINED AT GOAL RATE WITH MINIMAL RESIDUALS. TEMP IBRAHIM PATENT AND DRAINING WITH TOTAL OUTPUT OF 750 DURING SHIFT. VENT SETTINGS @ AC/VC 26/300/14/60% WITH SPO2 GREATER THAN 90%. NO OTHER UPDATES DURING SHIFT. WILL CONTINUE TO MONITOR UNTIL REPORT GIVEN TO ONCOMING RN.
--- NOTE | 2021-04-05 08:00 | NUR ---
ASSUMED CARE OF PT, REPORT RCV'D FROM VIRAL FRIAS. PT INTUBATED, SEDATED, AND PRONED. VENT SETTINGS 26/300/14/60%. LUNG SOUNDS CLEAR BILATERALLY UPPER/LOWER LOBES. PROPOFOL @ 35 MCG/KG/MIN, PRECEDEX @ 0.5 MCG/KG/HR, FENTANYL @ 50 MCG/HR. PT WITHDRAWS FROM PAIN, FAILS TO FOLLOW COMMANDS. PIVOT 1.5 AT GOAL RATE 20 ML/HR. RECTAL PROBE IN PLACE. VSS AT THIS TIME.
--- NOTE | 2021-04-05 18:39 | NUR ---
SHIFT SUMMARY PT REMAINS INTUBATED AND SEDATED, CURRENTLY SUPINE. VENT SETTINGS 26/300/14/50%. PROPOFOL @ 35 MCG/KG/MIN, PRECEDEX @ 0.5 MCG/KG/HR, FENTANYL 50 MCG/HR. PT HAD LARGE WATERY BOWEL MOVEMENT, RECTAL TUBE PLACED. PT'S DAUGHTER UPDATED WITH PT'S STATUS AND PLAN OF CARE. VSS T/O SHIFT. WILL REPORT TO ONCOMING NURSE.
--- NOTE | 2021-04-05 20:50 | NUR ---
ASSUMPTION OF CARE PT INTUBATED AND SEDATED. PROPOFOL @ 35, PRECEDEX AT 0.5, FENTANYL 50MCG/HR. GRIMACING WITH ORAL CARE, FAILS TO FOLLOW COMMANDS. SEDATION ADEQUATE FOR VENT SYNCHRONY WITH OCCASIONAL COUGH. VENT AT AC/VC: 26/300/14/50%, SPO2 91-92%. DESATS WITH REPOSITIONING, BUT RECOVERS WELL. LUNG SOUNDS CLEAR/DIMINISHED THROUGHOUT. MODERATE AMOUNT OF THICK CALDERON/BLOODY SECRETIONS WITH ETT SUCTIONING. HR NORMAL SINUS IN 60'S. BP NORMOTENSIVE WITH MAP >65. OG IN PLACE WITH PIVOT AT GOAL OF 20ML/HR. RECTAL TUBE PLACED TODAY, PATENT DRAINING DARK BROWN STOOL. IBRAHIM PATENT, DRAINING YELLOW CLEAR URINE. ABRAISION TO SEPTUM, AND SMALL SORE ON TONGUE, SCATTERED BRUISING T/O ABDOMEN. WILL REVIEW ORDERS AND TREAT PRESCRIBED.
--- NOTE | 2021-04-06 01:15 | NUR ---
REASSESSMENT Pt remains intubated and sedated. Sedation medications unchanged, pt moving legs minimally, but not purposeful movements. Grimacing with oral care, cough reflex present; otherwise, remains synchronous with vent. Vent remains AC/VC 26/300/14/50%, SpO2 92-93%. HR normal sinus in 60's. BP normotensive, MAP >65. Residuals of 35ml, refed. Pantoja patent, clear yellow urine draining. Rectal tube patent. Pt afebrile.
--- NOTE | 2021-04-06 04:30 | NUR ---
REASSESSMENT PT'S SEDATION AND VENT SETTINGS CONTINUE UNCHANGED. VSS. TOLERATING TURNS WELL. GRIMACING WITH ORAL CARE, BUT NO PURPOSEFUL MOVEMENTS. LUNGS DIMINISHED T/O, SATS 90-92%. TUBE FEED CONTINUES AT GOAL OF 20ML/HR, 10ML RESIDUALS. IBRAHIM PATENT, DRAINING CLEAR/YELLOW URINE. RECTAL TUBE PATENT.
[2021-04-06 05:03] LABS: BASOPHILS ABSOLUTE AUTO 0.05 K/mm3 (0.00-0.23); BASOPHILS PERCENT AUTO 0 % (0-2); EOSINOPHILS ABSOLUTE AUTO 0.01 K/mm3 (0.00-0.68); EOSINOPHILS PERCENT AUTO 0 % (0-6); Hematocrit 36.1 % (33.0-51.0); Hemoglobin 10.8 g/dL (11.5-16.0); IMMATURE GRAN ABSOLUTE AUTO 1.13 K/mm3 (0.00-0.10); IMMATURE GRAN PERCENT AUTO 6 % (0-1); LYMPHOCYTES ABSOLUTE AUTO 1.46 K/mm3 (0.84-5.20); LYMPHOCYTES PERCENT AUTO 8 % (21-46); MONOCYTES ABSOLUTE AUTO 0.97 K/mm3 (0.16-1.47); MONOCYTES PERCENT AUTO 6 % (4-13); Mean Corpuscular HGB 27.5 pg (26.0-34.0); Mean Corpuscular HGB Conc 29.9 g/dL (31.5-36.5); Mean Corpuscular Volume 92 fL (80-100); NEUTROPHILS ABSOLUTE AUTO 14.12 K/mm3 (1.96-9.15); NEUTROPHILS PERCENT AUTO 80 % (41-73); NRBC ABSOLUTE 0.03 K/mm3 (0.00-0.02); NRBC Auto 0.2 /100 WBC (0.0-0.2); Platelet Count 278 K/mm3 (150-400); RDW Coefficient Variation 14.4 % (11.7-14.2); RDW Standard Deviation 47.6 fL (35.1-46.3); Red Blood Cell Count 3.93 M/mm3 (3.80-5.20); White Blood Cell Count 17.74 K/mm3 (4.00-11.30)
[2021-04-06 05:33] LABS: Albumin, Blood 1.8 g/dL (3.4-5.0); Anion Gap 4 mmol/L (6-16); Blood Urea Nitrogen 31 mg/dL (8-24); Bun/Creatinine Ratio 59.4 (12.0-20.0); CO2, Blood 33 mmol/L (21-32); Chloride, Blood 104 mmol/L (98-108); Creatinine, Blood 0.52 mg/dL (0.40-1.00); Glomerular Filtration Rate >60 (60-); Glucose, Blood 157 mg/dL (70-99); Magnesium, Blood 2.3 mg/dL (1.6-2.4); Phosphorus, Blood 2.6 mg/dL (2.5-4.9); Potassium, Blood 4.4 mmol/L (3.5-5.5); Sodium, Blood 141 mmol/L (136-145)
[2021-04-06 06:01] LABS: BAND PERCENT MAN 3 % (0-8); BASOPHILS PERCENT MAN 0 % (0-2); EOSINOPHILS PERCENT MAN 0 % (0-6); LYMPHOCYTES ABSOLUTE MAN 1.41 K/mm3 (0.84-5.20); LYMPHOCYTES PERCENT MAN 8 % (21-46); MONOCYTES ABSOLUTE MAN 0.17 K/mm3 (0.16-1.47); MONOCYTES PERCENT MAN 1 % (4-13); MYELOCYTE ABSOLUTE MAN 0.17 K/mm3 (0.00-0.00); MYELOCYTE PERCENT MAN 1 % (0-0); NEUTROPHILS ABSOLUTE MAN 15.96 K/mm3 (1.96-9.15); SEG NEUTROPHILS PERCENT MAN 87 % (41-73); TOTAL CELLS COUNTED 100
--- NOTE | 2021-04-06 06:26 | NUR ---
Pt remains intubated and sedated. Sedation gtt unchanged, grimacing with oral care, cough reflex present mainly with repositioning. Vent unchanged: AC/VC 26/300/14/50%, sats 90-92%. VSS t/o shift. OG in place, minimal residuals. Pantoja patent, drained 1100ml clear/yellow urine. Rectal tube patent. Pt afebrile t/o shift. Central line and PG dressings replaced this shift. Daughter Zulma updated this morning at 0500. Will give report to oncoming RN.
--- NOTE | 2021-04-06 09:31 | NUR ---
ASSUMED CARE OF PT, REPORT RCV'D FROM VIRAL FRIAS. PT INTUBATED AND SEDATED. VENT SETTINGS 26/300/14/50%. PROPOFOL @ 35 MCG/KG/MIN, PRECEDEX @ 0.5 MCG/KG/HR, FENTANYL GTT @ 50 MCG/HR. PT WITHDRAWS FROM PAIN, FAILS TO FOLLOW COMMANDS OR DISPLAY PURPOSEFUL MOVEMENT. PT'S DAUGHTER UPDATED ON PT'S STATUS AND PLAN OF CARE. VSS.
--- NOTE | 2021-04-06 18:21 | NUR ---
SHIFT SUMMARY NO ACUTE CHANGES THIS SHIFT. PT REMAINS INTUBATED AND SEDATED WITH NO CHANGE TO VENT SETTINGS OR SEDATION. VSS T/O SHIFT. PT'S DAUGHTER UPDATED BY THIS NURSE AND DR. CHILDS. WILL REPORT TO ONCOMING NURSE.
--- NOTE | 2021-04-06 19:54 | NUR ---
ASSUMED CARE OF PT AT 1900, REPORT RECEIVED FROM VIRAL STEPHENS. PT INTUBATED AND SEDATED. VENT SETTINGS AC 26/300/14/50% WITH SPO2 90%. LUNGS CLEAR WITH DIMINISHED BASES. HYPOACTIVE BOWEL TONES. RECTAL TUBE IN PLACE DRAINING BROWN LIQUID STOOL, IBRAHIM DRAINING TO GRAVITY. PRECEDEX INFUSING AT 0.5 MCG/KG/HR, PROPOFOL AT 35 MCG/KG/MIN, AND FENTANYL AT 50 MCG/HR. OG WITH TF PIVOT RUNNING AT GOAL RATE OF 20 ML/HR WITH 30 ML Q4H WATER FLUSHES. PULSES PALPABLE IN ALL EXTREMITIES.
[2021-04-07 03:43] LABS: Hematocrit 36.3 % (33.0-51.0); Hemoglobin 10.8 g/dL (11.5-16.0); Mean Corpuscular HGB 27.6 pg (26.0-34.0); Mean Corpuscular HGB Conc 29.8 g/dL (31.5-36.5); Mean Corpuscular Volume 93 fL (80-100); Mean Platelet Volume 11.4 fL (9.1-12.4); Platelet Count 301 K/mm3 (150-400); RDW Coefficient Variation 14.8 % (11.7-14.2); RDW Standard Deviation 48.4 fL (35.1-46.3); Red Blood Cell Count 3.91 M/mm3 (3.80-5.20); White Blood Cell Count 16.74 K/mm3 (4.00-11.30)
[2021-04-07 04:00] LABS: Albumin, Blood 1.9 g/dL (3.4-5.0); Anion Gap 2 mmol/L (6-16); Blood Urea Nitrogen 32 mg/dL (8-24); Bun/Creatinine Ratio 61.2 (12.0-20.0); CO2, Blood 32 mmol/L (21-32); Calcium, Blood 8.9 mg/dL (8.5-10.1); Chloride, Blood 106 mmol/L (98-108); Creatinine, Blood 0.52 mg/dL (0.40-1.00); Glomerular Filtration Rate >60 (60-); Glucose, Blood 181 mg/dL (70-99); Magnesium, Blood 2.3 mg/dL (1.6-2.4); Phosphorus, Blood 2.5 mg/dL (2.5-4.9); Potassium, Blood 4.6 mmol/L (3.5-5.5); Sodium, Blood 140 mmol/L (136-145)
[2021-04-07 04:01] LABS: BAND PERCENT MAN 7 % (0-8); BASOPHILS PERCENT MAN 0 % (0-2); EOSINOPHILS PERCENT MAN 0 % (0-6); LYMPHOCYTES ABSOLUTE MAN 1.33 K/mm3 (0.84-5.20); LYMPHOCYTES PERCENT MAN 8 % (21-46); METAMYELOCYTE ABSOLUTE MAN 0.83 K/mm3 (0.00-0.00); METAMYELOCYTE PERCENT MAN 5 % (0-0); MONOCYTES ABSOLUTE MAN 0.83 K/mm3 (0.16-1.47); MONOCYTES PERCENT MAN 5 % (4-13); MYELOCYTE ABSOLUTE MAN 0.33 K/mm3 (0.00-0.00); MYELOCYTE PERCENT MAN 2 % (0-0); NEUTROPHILS ABSOLUTE MAN 13.39 K/mm3 (1.96-9.15); SEG NEUTROPHILS PERCENT MAN 73 % (41-73); TOTAL CELLS COUNTED 100
--- NOTE | 2021-04-07 06:16 | NUR ---
SHIFT SUMMARY PT REMAINS INTUBATED AND SEDATED. VENT SETTINGS AC 26/300/14/45% WITH SPO2 94%. LUNGS CLEAR WITH DIM BASES T/O SHIFT. PRECEDEX INFUSING AT 0.5 MCG/KG, PROPOFOL AT 35 MCG/KG, AND FENTANYL AT 50 MCG/HR. PT STILL NOT DOING ANY PURPOSEFUL MOVEMENTS, NOT FOLLOWING COMMANDS. GRAMACING WITH ORAL CARE AND WITHDRAWING FROM PAINFUL STIMULI. DAUGHTER CALLED FOR UPDATE AFTERWARDS PHONE CALL TRANSFERRED INTO PT'S ROOM AND PHONE HELD TO PT'S EAR.
--- NOTE | 2021-04-07 07:42 | NUR ---
ASSUMED CARE. PT CONDITION CONCURRENT WITH REPORT. PT SEDATED ON VENTILATOR, NO ACUTE DISTRESS AT THIS TIME. BILATERAL SOFT WRIST RESTRAINTS IN PLACE PT IS HIGH RISK FOR SELF EXTUBATION. GOAL TO MINIMIZE SEDATION AND CONTINIUE TO LOWER VENTILATOR SUPPORT TOLERATED.
--- NOTE | 2021-04-07 09:24 | NUR ---
PEEP DOWN TO 12. FI02-45%. PROPOFOL INFUSING AT 30MCG/KG/MIN, PRECEDEX REMAINS AT 0.5MCG/KG/HR AND FENTANLY INFUSING AT 50MCG/HR VIA HVAC TECHNICIAN RESIDENTIAL. PT IN NO ACUTE DISTRESS.
--- NOTE | 2021-04-07 13:39 | NUR ---
PTS DAUGHTER AT BEDSIDE, UPDATED ON CURRENT PROGRESS. ALL QUESTIONS ANSWERED TO THE BEST OF THIS RNS ABILITY. PT QUIET ON VENTILATOR. NO ACUTE DISTRESS.
--- NOTE | 2021-04-07 15:00 | NUR ---
BELONGINGS PTS DAUGHTER JOHN TOOK ALL OF PTS BELONGINGS INCLUDING PURSE WITH ALL CONTENTS, BAG WITH ALL CONTENTS, PHONE, PHONE ORDER PROCESSING MANAGER AND BLOUSE.
--- NOTE | 2021-04-07 18:05 | NUR ---
PT REMAINS SEDATED ON VENTILATOR. CURRENT VENT SETTINGS: AC-26, TV-300, PEEP-10, FIO2-45%. CURRENT BIOX-93%. VSS. BILATERAL SOFT WRIST RESTRAINTS IN PLACE PT IS HIGH RISK FOR SELF EXTUBATION. PROPOFOL INFUSING AT 35MCG/KG/MIN, PRECEDEX IS DOWN TO 0.3MCG/KG/HR AND FENTANYL AT 50MCG/HR. REPORT TO BE GIVEN TO ONCOMING RN, WILL MONITOR UNTIL THEN.
--- NOTE | 2021-04-07 20:34 | NUR ---
ASSUMED CARE OF PT AT 1900, REPORT RECEIVED FROM NIELS STRATTON. PT INTUBATED AND SEDATED. VENT SETTINGS AC 26/300/8/45% WITH SPO2 93%. LUNGS CLEAR WITH DIM BASES, SCANT AMOUNT OF THICK WHITE SECRETIONS VIA ETT. BOWEL TONES HYPOACTIVE. RECTAL TUBE AND IBRAHIM DRAINING TO GRAVITY. PT NOT OPENING EYES OR FOLLOWING ANY COMMANDS. NO PURPOSEFUL MOVEMENT NOTED AT THIS TIME. PULSES PALPABLE IN ALL EXTREMITIES, CAP REFILL WNL. PUPILS EQUAL AND REACTIVE.
[2021-04-08 04:15] LABS: BASOPHILS ABSOLUTE AUTO 0.04 K/mm3 (0.00-0.23); BASOPHILS PERCENT AUTO 0 % (0-2); EOSINOPHILS PERCENT AUTO 0 % (0-6); Hematocrit 35.5 % (33.0-51.0); Hemoglobin 10.8 g/dL (11.5-16.0); IMMATURE GRAN ABSOLUTE AUTO 0.81 K/mm3 (0.00-0.10); IMMATURE GRAN PERCENT AUTO 5 % (0-1); LYMPHOCYTES ABSOLUTE AUTO 1.17 K/mm3 (0.84-5.20); LYMPHOCYTES PERCENT AUTO 7 % (21-46); MONOCYTES ABSOLUTE AUTO 1.14 K/mm3 (0.16-1.47); MONOCYTES PERCENT AUTO 7 % (4-13); Mean Corpuscular HGB 28.4 pg (26.0-34.0); Mean Corpuscular HGB Conc 30.4 g/dL (31.5-36.5); Mean Corpuscular Volume 93 fL (80-100); Mean Platelet Volume 11.3 fL (9.1-12.4); NEUTROPHILS ABSOLUTE AUTO 12.87 K/mm3 (1.96-9.15); NEUTROPHILS PERCENT AUTO 80 % (41-73); Platelet Count 268 K/mm3 (150-400); RDW Coefficient Variation 15.3 % (11.7-14.2); RDW Standard Deviation 48.7 fL (35.1-46.3); White Blood Cell Count 16.03 K/mm3 (4.00-11.30)
[2021-04-08 04:36] LABS: Alanine Aminotransfer (ALT/SGP 61 U/L (12-78); Albumin, Blood 1.7 g/dL (3.4-5.0); Albumin/Globulin Ratio 0.4 (0.8-1.8); Alk Phos 63 U/L (50-136); Anion Gap 4 mmol/L (6-16); Aspartate Aminotrans (AST/SGOT 35 U/L (12-37); Bilirubin, Total 0.5 mg/dL (0.1-1.0); Blood Urea Nitrogen 35 mg/dL (8-24); Bun/Creatinine Ratio 71.6 (12.0-20.0); C-REACTIVE PROTEIN, EXT RANGE 0.763 mg/dL (0.000-0.300); CO2, Blood 30 mmol/L (21-32); Calcium, Blood 9.2 mg/dL (8.5-10.1); Chloride, Blood 107 mmol/L (98-108); Creatinine, Blood 0.49 mg/dL (0.40-1.00); Globulin, Blood 4.3 g/dL (2.2-4.0); Glomerular Filtration Rate >60 (60-); Glucose, Blood 178 mg/dL (70-99); Magnesium, Blood 2.4 mg/dL (1.6-2.4); Phosphorus, Blood 3.2 mg/dL (2.5-4.9); Potassium, Blood 4.5 mmol/L (3.5-5.5); Sodium, Blood 141 mmol/L (136-145)
[2021-04-08 04:53] LABS: BAND PERCENT MAN 1 % (0-8); BASOPHILS ABSOLUTE MAN 0.16 K/mm3 (0.00-0.23); BASOPHILS PERCENT MAN 1 % (0-2); EOSINOPHILS PERCENT MAN 0 % (0-6); LYMPHOCYTES ABSOLUTE MAN 0.96 K/mm3 (0.84-5.20); LYMPHOCYTES PERCENT MAN 6 % (21-46); METAMYELOCYTE ABSOLUTE MAN 0.32 K/mm3 (0.00-0.00); METAMYELOCYTE PERCENT MAN 2 % (0-0); MONOCYTES ABSOLUTE MAN 0.48 K/mm3 (0.16-1.47); MONOCYTES PERCENT MAN 3 % (4-13); MYELOCYTE ABSOLUTE MAN 0.32 K/mm3 (0.00-0.00); MYELOCYTE PERCENT MAN 2 % (0-0); NEUTROPHILS ABSOLUTE MAN 13.78 K/mm3 (1.96-9.15); SEG NEUTROPHILS PERCENT MAN 85 % (41-73); TOTAL CELLS COUNTED 100
--- NOTE | 2021-04-08 07:18 | NUR ---
SHIFT SUMMARY PT CONTINUES TO BE INTUBATED AND SEDATED. VENT SETTINGS AC 26/300/8/70%. LUNGS CLEAR WITH DIM BASES, SCANT AMOUNT OF THICK WHITE SECRETIONS VIA ETT. PRECEDEX INFUSING AT 0.3 MCG/KG, PROPOFOL AT 45 MCG/KG, AND FENTANYL AT 100 MCG/HR. ATTEMPTED TO LIGHTEN SEDATION OVERNIGHT, PT COUGHING AND OVER BREATHING VENT, EYES OPENED, HOWEVER DID NOT TRACK OR FOLLOW ANY PURPOSEFUL COMMANDS.
--- NOTE | 2021-04-08 16:41 | NUR ---
THIS NURSE CALLED TO SCREENING STATION REGARDING "FAMILY" REQUESTING PT'S POSSESSIONS. CHELY (PT'S GRANDDAUGHTER'S MOTHER) AND GRANDDAUGHTER REQUESTING PT'S WALLET BECAUSE HER "FOOD STAMP CARD" IS INSIDE AND SHE "NEEDS MONEY THATS IN THE WALLET TO PAY BILLS". THIS NURSE INFORMED CHELY THAT PT'S WALLET WAS NOT IN THE ROOM AND REFERRED HER TO JOHN (PT'S DAUGHTER AND POINT OF CONTACT). CHELY UPSET THAT JOHN IS LISTED NEXT OF KIN (PER PT'S CHOICE) SHE IS "NOT THE OLDEST CHILD". CHELY REQUESTED UPDATE ON PT'S MEDICAL STATUS, GAVE VERY GENERIC UPDATE AND REFERRED HER TO JOHN SHE HAD JUST SPOKEN TO COKE WHEELER. TOOK CHELY'S CONTACT INFORMATION ([phone]) AND SAID THAT I WOULD CALL IF I HAD ANY INFORMATION. CALLED JOHN AND RELAYED INFORMATION. JOHN STATES THAT SHE TOOK PT'S PURSE AND IS KEEPING SAFE FOR HER. JOHN REQUESTS THAT NO INFORMATION BE GIVEN TO CHELY SHE IS NOT FAMILY.
--- NOTE | 2021-04-08 18:33 | NUR ---
SHIFT SUMMARY NO ACUTE CHANGES THIS SHIFT. PT REMAINS INTUBATED, VENT SETTINGS 26/300/12/45%. SEDATION REMAINS UNCHANGED. 700 ML URINARY OUTPUT. PLAN TO PRONE THIS EVENING. PT'S FAMILY SPOKE WITH DR. HINTON REGARDING POSSIBILITY OF TRACH/PEGGING PT. VSS T/O SHIFT. WILL REPORT TO ONCOMING NURSE.
--- NOTE | 2021-04-08 20:00 | NUR ---
ASSUMPTION OF CARE PT REMAINS INTUBATED. VENT SETTINGS 26/300/12/45%. PT RECEIVING PROPOFOL 45MCG/KG/MIN, PRECEDEX 0.3MCG/KG/HR, AND FENTANYL 50MCG/HR. TUBE FEED INFUSING AT GOAL RATE. LUNGS ARE CLEAR AND DIMINISHED THROUGHOUT. IBRAHIM AND RECTAL TUBE REMAIN IN PLACE. SEE SHIFT ASSESSMENT.
[2021-04-09 04:44] LABS: BASOPHILS ABSOLUTE AUTO 0.05 K/mm3 (0.00-0.23); BASOPHILS PERCENT AUTO 0 % (0-2); EOSINOPHILS PERCENT AUTO 0 % (0-6); Hematocrit 36.1 % (33.0-51.0); IMMATURE GRAN ABSOLUTE AUTO 0.67 K/mm3 (0.00-0.10); IMMATURE GRAN PERCENT AUTO 4 % (0-1); LYMPHOCYTES ABSOLUTE AUTO 1.15 K/mm3 (0.84-5.20); LYMPHOCYTES PERCENT AUTO 8 % (21-46); MONOCYTES ABSOLUTE AUTO 1.09 K/mm3 (0.16-1.47); MONOCYTES PERCENT AUTO 7 % (4-13); Mean Corpuscular HGB 28.2 pg (26.0-34.0); Mean Corpuscular HGB Conc 30.5 g/dL (31.5-36.5); Mean Corpuscular Volume 93 fL (80-100); Mean Platelet Volume 11.3 fL (9.1-12.4); NEUTROPHILS PERCENT AUTO 81 % (41-73); Platelet Count 285 K/mm3 (150-400); RDW Coefficient Variation 15.5 % (11.7-14.2); White Blood Cell Count 15.06 K/mm3 (4.00-11.30)
[2021-04-09 05:02] LABS: Alanine Aminotransfer (ALT/SGP 55 U/L (12-78); Albumin, Blood 1.8 g/dL (3.4-5.0); Albumin/Globulin Ratio 0.4 (0.8-1.8); Alk Phos 69 U/L (50-136); Anion Gap 4 mmol/L (6-16); Aspartate Aminotrans (AST/SGOT 27 U/L (12-37); Bilirubin, Total 0.5 mg/dL (0.1-1.0); Blood Urea Nitrogen 32 mg/dL (8-24); Bun/Creatinine Ratio 67.8 (12.0-20.0); CO2, Blood 31 mmol/L (21-32); Calcium, Blood 9.4 mg/dL (8.5-10.1); Chloride, Blood 106 mmol/L (98-108); Creatinine, Blood 0.47 mg/dL (0.40-1.00); Globulin, Blood 4.2 g/dL (2.2-4.0); Glomerular Filtration Rate >60 (60-); Glucose, Blood 147 mg/dL (70-99); Magnesium, Blood 2.3 mg/dL (1.6-2.4); Phosphorus, Blood 2.9 mg/dL (2.5-4.9); Potassium, Blood 4.8 mmol/L (3.5-5.5); Sodium, Blood 141 mmol/L (136-145); Triglycerides 260 mg/dL (30-160)
--- NOTE | 2021-04-09 06:17 | NUR ---
SHIFT SUMMARY PT REMAINS INTUBATED, VENT SETTINGS 26/300/12/50%. PT RECEIVING PROPOFOL 50MCG/KG/MIN, PRECEDEX 0.3MCG/KG/HR, AND FENTANYL 50MCG/HR. TUBE FEEDING INFUSING AT GOAL RATE WITH MINIMAL RESIDUALS. RECTAL TUBE IN PLACE. IBRAHIM REMAINS IN PLACE WITH SHIFT OUTPUT OF 950ML OF DARK SHELLEY/PINK URINE. WILL REPORT TO ONCOMING RN.
--- NOTE | 2021-04-09 18:08 | NUR ---
SUMMARY PT INTUBATED AND SEDATED WITH PROPOFOL, PRECEDEX, AND FENTANYL. PT WAS PRONED UNTIL 1200 TODAY. TOLERATING VENT WELL. TOLERATING TUBE FEED WELL WITH 10-30ML RESIDUALS. NO ACUTE CHANGES THIS SHIFT.
--- NOTE | 2021-04-09 21:01 | NUR ---
ASSUMPTION OF CARE PT REMAINS INTUBATED. VENT SETTINGS AC 26/300/12/35% WITH SPO2 >93%. PT RECEIVING PROPOFOL 50MCG/KG/MIN, PRECEDEX 0.3MCG/KG/HR, AND FENTANYL 50MCG/HR. PT APPEARS COMFORTABLE. OPENS EYES DURING REPOSITIONING. IBRAHIM AND RECTAL TUBE REMAIN IN PLACE. SEE SHIFT ASSESSMENT.
[2021-04-10 03:58] LABS: BASOPHILS ABSOLUTE AUTO 0.02 K/mm3 (0.00-0.23); BASOPHILS PERCENT AUTO 0 % (0-2); EOSINOPHILS PERCENT AUTO 0 % (0-6); Hemoglobin 10.6 g/dL (11.5-16.0); IMMATURE GRAN ABSOLUTE AUTO 0.46 K/mm3 (0.00-0.10); IMMATURE GRAN PERCENT AUTO 4 % (0-1); LYMPHOCYTES ABSOLUTE AUTO 0.97 K/mm3 (0.84-5.20); LYMPHOCYTES PERCENT AUTO 7 % (21-46); MONOCYTES ABSOLUTE AUTO 0.91 K/mm3 (0.16-1.47); MONOCYTES PERCENT AUTO 7 % (4-13); Mean Corpuscular HGB 28.3 pg (26.0-34.0); Mean Corpuscular HGB Conc 30.3 g/dL (31.5-36.5); Mean Corpuscular Volume 94 fL (80-100); Mean Platelet Volume 11.4 fL (9.1-12.4); NEUTROPHILS ABSOLUTE AUTO 10.84 K/mm3 (1.96-9.15); NEUTROPHILS PERCENT AUTO 82 % (41-73); Platelet Count 271 K/mm3 (150-400); RDW Coefficient Variation 15.8 % (11.7-14.2); RDW Standard Deviation 50.7 fL (35.1-46.3); Red Blood Cell Count 3.74 M/mm3 (3.80-5.20)
[2021-04-10 04:25] LABS: Anion Gap 2 mmol/L (6-16); Blood Urea Nitrogen 28 mg/dL (8-24); Bun/Creatinine Ratio 64.5 (12.0-20.0); CO2, Blood 30 mmol/L (21-32); Calcium, Blood 8.9 mg/dL (8.5-10.1); Chloride, Blood 107 mmol/L (98-108); Creatinine, Blood 0.43 mg/dL (0.40-1.00); Glomerular Filtration Rate >60 (60-); Glucose, Blood 159 mg/dL (70-99); Magnesium, Blood 2.2 mg/dL (1.6-2.4); Phosphorus, Blood 2.8 mg/dL (2.5-4.9); Potassium, Blood 4.5 mmol/L (3.5-5.5); Sodium, Blood 139 mmol/L (136-145)
--- NOTE | 2021-04-10 05:05 | NUR ---
SHIFT SUMMARY PT REMAINS INTUBATED. VENT SETTINGS AC 26/300/12/35% WITH SPO2 >91%. PT RECEIVING PROPOFOL 50MCG/KG/MIN, PRECEDEX 0.3MCG/KG/HR, AND FENTANYL 50MCG/HR. PIVOT 1.5 INFUSING AT GOAL RATE VIA OGT. RECTAL TUBE REMAINS IN PLACE, SHIFT OUTPUT OF 75ML. IBRAHIM REMAINS IN PLACE DRAINING SHELLEY/PINK URINE, SHIFT OUTPUT 800ML. WILL REPORT TO ONCOMING RN.
--- NOTE | 2021-04-10 05:10 | NUR ---
SHIFT SUMMARY PT REMAINS VENTED VIA TRACH. TRACH SITE WNL. VENT SETTINGS AC 26/400/12/40%. PT RECEIVING PROPOFOL 60MCG/KG/MIN, PRECEDEX 0.7MCG/KG/HR, AND FENTANYL 100MCG/HR. TUBE FEEDING CONTINUES TO INFUSE VIA DOBHOFF. IBRAHIM REMAINS IN PLACE DRAINING YELLOW/CLEAR URINE WITH SHIFT OUTPUT OF 2150ML. CRITICAL PHOSPHORUS THIS AM LABS. DR CRESPO CALLED, RECEIVED ORDER FOR POTASSIUM PHOSPHATE. WILL REPORT TO ONCOMING RN.
[2021-04-10 17:42] LABS: Hematocrit 34.4 % (33.0-51.0); Hemoglobin 10.6 g/dL (11.5-16.0)
--- NOTE | 2021-04-10 18:09 | NUR ---
SUMMARY PT INTUBATED AND SEDATED WITH PROPOFOL, PRECEDEX, AND FENTANYL. ATTEMPTED TO TITRATE PRECEDEX OFF BUT PT COUGHS AND BECOMES ASYNCHRONOUS WITH VENT. COPIOUS AMT OF CALDERON THICK SPUTUM FROM ETT. HAD TUBE FEED DYED TODAY TO MAKE SURE IT WAS NOT TUBE FEED BEING SUCTIONED FROM ETT WHICH THERE IS NO EVIDENCE OF THAT. THIS EVENING PT BECAME HYPOTENSIVE. CALLED DR. HINTON WHO ORDERED 1L BOLUS WHICH SHE IS RESPONDING TO. DECREASED PROPOFOL A LITTLE WELL TO SEE IF THAT HELPS. CHECKED H&H AND IT IS STILL STABLE NO CHANGE THERE. NO SIGN OF BLEEDING ANY WHERE. NOT FOLLOWING ANY COMMANDS. DR. PARK IN [facility] TO SEE PT AND GOT CONSENT FOR TRACH TOMORROW. NO OTHER CHANGES.
--- NOTE | 2021-04-10 19:27 | NUR ---
CALLED DR. HINTON BACK DUE TO BP DROPPING AGAIN AFTER BOLUS FINISHED. ANOTHER LITER OF LR ORDERED AND IF THAT DOESN'T WORK THEN START LEVOPHED. REPORT GIVEN TO KRISH STRATTON WHO WILL ASSUME CARE.
--- NOTE | 2021-04-10 20:30 | NUR ---
Assumed care for patient at 1900. Vented sbp less than 60 and dbp in the 30's. One liter of LR administered and Levophed initiated at 3mcg/min. Suctioned for thick villaseñor moderate amount of secretion via her ETT and orally.Reposioned for comfort.
[2021-04-11 04:38] LABS: BASOPHILS ABSOLUTE AUTO 0.04 K/mm3 (0.00-0.23); BASOPHILS PERCENT AUTO 0 % (0-2); EOSINOPHILS ABSOLUTE AUTO 0.06 K/mm3 (0.00-0.68); EOSINOPHILS PERCENT AUTO 0 % (0-6); Hematocrit 35.2 % (33.0-51.0); Hemoglobin 10.6 g/dL (11.5-16.0); IMMATURE GRAN ABSOLUTE AUTO 0.55 K/mm3 (0.00-0.10); IMMATURE GRAN PERCENT AUTO 3 % (0-1); LYMPHOCYTES ABSOLUTE AUTO 1.18 K/mm3 (0.84-5.20); LYMPHOCYTES PERCENT AUTO 6 % (21-46); MONOCYTES ABSOLUTE AUTO 0.96 K/mm3 (0.16-1.47); MONOCYTES PERCENT AUTO 5 % (4-13); Mean Corpuscular HGB Conc 30.1 g/dL (31.5-36.5); Mean Corpuscular Volume 93 fL (80-100); Mean Platelet Volume 10.9 fL (9.1-12.4); NEUTROPHILS PERCENT AUTO 86 % (41-73); Platelet Count 266 K/mm3 (150-400); RDW Coefficient Variation 16.3 % (11.7-14.2); RDW Standard Deviation 53.4 fL (35.1-46.3); Red Blood Cell Count 3.79 M/mm3 (3.80-5.20); White Blood Cell Count 20.59 K/mm3 (4.00-11.30)
[2021-04-11 04:55] LABS: Anion Gap 2 mmol/L (6-16); Blood Urea Nitrogen 28 mg/dL (8-24); Bun/Creatinine Ratio 61.3 (12.0-20.0); CO2, Blood 29 mmol/L (21-32); Calcium, Blood 9.4 mg/dL (8.5-10.1); Chloride, Blood 108 mmol/L (98-108); Creatinine, Blood 0.46 mg/dL (0.40-1.00); Glomerular Filtration Rate >60 (60-); Glucose, Blood 212 mg/dL (70-99); Magnesium, Blood 2.4 mg/dL (1.6-2.4); Phosphorus, Blood 2.7 mg/dL (2.5-4.9); Sodium, Blood 139 mmol/L (136-145)
--- NOTE | 2021-04-11 06:30 | NUR ---
No acute clinical changes. Patient remain vented and presently Levophed drip infusing at 3mcg/hr. and bp is 119/53 and HR 68. Tube feeding held this 0600 for tracheostomy scheduled for today. No distress. Patient had chext xray done this morning
--- NOTE | 2021-04-11 09:32 | NUR ---
AT BEDSIDE PREPARING FOR TRACH
--- NOTE | 2021-04-11 09:35 | NUR ---
DR. BRONW AND DR. ESCOTO, ALONG WITH RT SALINAS AT BEDSIDE FOR TRACH PROCEDURE.
--- NOTE | 2021-04-11 09:38 | NUR ---
TIME OUT DONE AT 0940. 50 OF NOEMI, 10 OF MORPHINE AND 2 OF ATIVAN OUSHED
--- NOTE | 2021-04-11 09:48 | NUR ---
ETT TUBE OUT AT 1004. TRACH PLACED. SATS ARE 96% HR 87 AND BP 116 92
[2021-04-11 11:23] LABS: Source, Urine Catheter
[2021-04-11 11:31] LABS: Appearance, Urine Cloudy (Clear); Bilirubin, Urine Neg (Neg); Blood, Urine 5+ (Neg); Color, Urine Amber (P-Yellow); Glucose Qualitative, Urine Neg (Neg); Ketones, Urine Neg (Neg); Leukocyte Esterase, Urine 3+ (Neg); Nitrite, Urine Neg (Neg); Protein, Urine 3+ (Neg); Urobilinogen, Urine 3+ (Normal)
[2021-04-11 12:35] LABS: Red Blood Cells, Urine TNTC /hpf (0-2); White Blood Cells, Urine TNTC /hpf (0-5)
[2021-04-11 12:36] LABS: Bacteria Many /hpf; Squamous Epithelial Cells Few /hpf (Few)
--- NOTE | 2021-04-11 15:24 | NUR ---
SUBCLAVIAN CENTRAL LINE PULELD. PRESSURE HELD FOR ABOUT 3 MINUTES. NO BLEEDING. PRESSURE TAPE IN PLACE
--- NOTE | 2021-04-11 15:28 | NUR ---
RECTAL TUBE REMOVED, CENTRAL LINE PULLED. ALL TUBING LINES CHANGED AND SWITCHED TO THE PICC. TF RESTARTED THROUGH THE DOBHOFF, OKAYED BY DR. HINTON.
--- NOTE | 2021-04-11 18:05 | NUR ---
PT WAS TRACHED THIS MORNING AT 0930. HER CURRENT VENT SETTINGS ARE 28/300/14/45%. PT IS RESTING COMFORTABLY ON DECREASED SEDATION. SHE IS OFF FENTANYL, ONLY PUSHES, PROPOFOL IS 20, PRECEDEX IS 0.2. LEVOPHED IS ON SB. IBRAHIM IN PLACE. RECTAL TUBE REMOVED. TF RESTARTED THROUGH DOBHOFF. DAUGHTER JOHN UPDATED.
[2021-04-12 04:59] LABS: BASOPHILS ABSOLUTE AUTO 0.01 K/mm3 (0.00-0.23); BASOPHILS PERCENT AUTO 0 % (0-2); EOSINOPHILS PERCENT AUTO 0 % (0-6); Hematocrit 31.3 % (33.0-51.0); Hemoglobin 9.4 g/dL (11.5-16.0); IMMATURE GRAN PERCENT AUTO 1 % (0-1); LYMPHOCYTES ABSOLUTE AUTO 0.47 K/mm3 (0.84-5.20); LYMPHOCYTES PERCENT AUTO 4 % (21-46); MONOCYTES ABSOLUTE AUTO 0.44 K/mm3 (0.16-1.47); MONOCYTES PERCENT AUTO 4 % (4-13); Mean Corpuscular Volume 93 fL (80-100); Mean Platelet Volume 11.3 fL (9.1-12.4); NEUTROPHILS ABSOLUTE AUTO 9.65 K/mm3 (1.96-9.15); NEUTROPHILS PERCENT AUTO 91 % (41-73); Platelet Count 191 K/mm3 (150-400); RDW Coefficient Variation 16.1 % (11.7-14.2); RDW Standard Deviation 53.3 fL (35.1-46.3); Red Blood Cell Count 3.36 M/mm3 (3.80-5.20); White Blood Cell Count 10.67 K/mm3 (4.00-11.30)
[2021-04-12 05:26] LABS: Alanine Aminotransfer (ALT/SGP 63 U/L (12-78); Albumin, Blood 1.4 g/dL (3.4-5.0); Albumin/Globulin Ratio 0.3 (0.8-1.8); Alk Phos 86 U/L (50-136); Anion Gap 2 mmol/L (6-16); Aspartate Aminotrans (AST/SGOT 13 U/L (12-37); Bilirubin, Total 1.2 mg/dL (0.1-1.0); Blood Urea Nitrogen 23 mg/dL (8-24); Bun/Creatinine Ratio 54.6 (12.0-20.0); CO2, Blood 30 mmol/L (21-32); Chloride, Blood 107 mmol/L (98-108); Creatinine, Blood 0.42 mg/dL (0.40-1.00); Globulin, Blood 4.2 g/dL (2.2-4.0); Glomerular Filtration Rate >60 (60-); Glucose, Blood 198 mg/dL (70-99); Magnesium, Blood 2.3 mg/dL (1.6-2.4); Phosphorus, Blood 1.8 mg/dL (2.5-4.9); Potassium, Blood 4.3 mmol/L (3.5-5.5); Sodium, Blood 139 mmol/L (136-145); Total Protein, Blood 5.6 g/dL (6.4-8.2)
[2021-04-12 05:31] LABS: C-REACTIVE PROTEIN, EXT RANGE >19.000 mg/dL (0.000-0.300)
--- NOTE | 2021-04-12 06:47 | NUR ---
Patient was calm during this shift Remained vented. Fio2 at 45%. Suctioned for thick blood tinged secretion via her new trach, Repositioned for comfort.Patient medicated twice with Fentanyl 50 mcg ivp for agitation. No distress noted.
--- NOTE | 2021-04-12 12:05 | NUR ---
RN IN PT ROOM BC ON INCREASED ECTOPY AND ST, FENTANYL 50MCG GIVEN FOR PAIN SX AT 1145, PT HR CHANGED TO SVT AT 1150, RN CALLED TO NOTIFY DR CHILDS. 6MG ADENOSINE RAPID IVP GIVEN AT 1152, PT HR CONVERTED TO AFIB IN 70S, THEN AFIB RVR 130S-170S. 10MG CARDIZEM SLOW IVP GIVEN AT 1156 PER MD ORDER. PT STARTED ON CARDIZEM GTT. FREQ BP MONITORING.
--- NOTE | 2021-04-12 13:42 | NUR ---
[id number]: CALLED DR CHILDS TO INFORM THAT PT ON CARDIZEM AT 15MG/HR, HR REMAINS AFIB RVR 130S-180S, PT STARTED ON LOW DOSE LEVO TO MAINTAIN MAPS 65 AND GREATER. RN CONCERN THAT HR REMAINS UNCHANGED. NEW ORDERS OBTAINED FOR AMIODARONE. AMIO BOLUS GIVEN PER ORDERS, THEN MAINTENANCE GTT STARTED PER ORDERS. PT DTR JOHN AT BEDSIDE. UPDATED ON PT STATUS, POC. DR CHILDS PRESENT TO SPEAK TO DTR IN PERSON.
--- NOTE | 2021-04-12 15:33 | NUR ---
Patient's daughter, Zulma is bedside so I visit with her. She talks about completely overwhelmed she is with work, family and and extended family. She talks about family unit complications and how to large degree she is carrying the load for medical decision making and communication with hospital staff and the family. She describes her fear of losing her mom and how that will impact many people. I conduct a brief life review of patient, encourage self-care, normalize Zulma's experience and provide therapeutic listening and prayer. Zulma responds well and shows signs of catharsis and being encouraged. I will continue to remain available to patient and family.
--- NOTE | 2021-04-12 18:18 | NUR ---
PT OPENS EYES, HAS COUGH/GAG, PERRLA 3 BILATERAL, BUT DOES NOT TRACK OR FOLLOW SIMPLE COMMANDS. PROP WEANED OFF THIS SHIFT. PT HAD EPISODE OF SVT, TX WITH ADENOSINE 6 MG, THEN CONVERTED TO AFIB RVR 140S-180S. CARDIZEM SLOW IVP, THEN CARDIZEM GTT INITIATED. PT SWITCHED TO AMIODARONE AT 1300 SECONDARY TO INEFFECTIVE RESPONSE TO CARD. PT CONVERTED BACK TO NSR AT APPROX 1400. PT GIVEN 500ML BOLUS NS, LOW DOSE LEVO USED INTERMITTENTLY TO MAINTAIN MAPS. ECHO DONE. TF AT GOAL, PLAN TO HAVE CONSULT FOR PEG TUBE PLACEMENT. GOOD UO, SHELLEY. PT REPOSITIONED Q 2 HRS TOLERATED, GIVEN FENTANYL PRN FOR S/SX PAIN. TRACH SITE INTACT. AT END OF SHIFT PT ON PRECEDEX 0.5, AND AMIO AT 1MCG/MIN WHICH WILL BE TITRATED DOWN TO 0.5MMCG/MIN AT 1930. DTR AT BEDSIDE DURING VISTING HOURS, UPDATED BY .
--- NOTE | 2021-04-12 19:51 | NUR ---
Assumed care for patient. Vented responds only to severe pain. Strong cough. Amiodarone drip rate changed at 1930 to 0.5mg/min. SR on the monitor with a HR in the 60's. Will faiza to monitor.
[2021-04-13 05:14] LABS: BASOPHILS ABSOLUTE AUTO 0.01 K/mm3 (0.00-0.23); BASOPHILS PERCENT AUTO 0 % (0-2); EOSINOPHILS PERCENT AUTO 0 % (0-6); Hematocrit 33.8 % (33.0-51.0); Hemoglobin 10.1 g/dL (11.5-16.0); IMMATURE GRAN ABSOLUTE AUTO 0.11 K/mm3 (0.00-0.10); IMMATURE GRAN PERCENT AUTO 1 % (0-1); LYMPHOCYTES ABSOLUTE AUTO 0.52 K/mm3 (0.84-5.20); LYMPHOCYTES PERCENT AUTO 6 % (21-46); MONOCYTES ABSOLUTE AUTO 0.43 K/mm3 (0.16-1.47); MONOCYTES PERCENT AUTO 5 % (4-13); Mean Corpuscular HGB 27.7 pg (26.0-34.0); Mean Corpuscular HGB Conc 29.9 g/dL (31.5-36.5); Mean Corpuscular Volume 93 fL (80-100); Mean Platelet Volume 11.5 fL (9.1-12.4); NEUTROPHILS ABSOLUTE AUTO 7.11 K/mm3 (1.96-9.15); NEUTROPHILS PERCENT AUTO 87 % (41-73); NRBC ABSOLUTE 0.02 K/mm3 (0.00-0.02); NRBC Auto 0.2 /100 WBC (0.0-0.2); Platelet Count 190 K/mm3 (150-400); RDW Coefficient Variation 15.9 % (11.7-14.2); RDW Standard Deviation 52.7 fL (35.1-46.3); Red Blood Cell Count 3.64 M/mm3 (3.80-5.20); White Blood Cell Count 8.18 K/mm3 (4.00-11.30)
[2021-04-13 05:36] LABS: Anion Gap 4 mmol/L (6-16); Blood Urea Nitrogen 31 mg/dL (8-24); Bun/Creatinine Ratio 74.3 (12.0-20.0); CO2, Blood 29 mmol/L (21-32); Calcium, Blood 9.9 mg/dL (8.5-10.1); Chloride, Blood 108 mmol/L (98-108); Creatinine, Blood 0.42 mg/dL (0.40-1.00); Glomerular Filtration Rate >60 (60-); Glucose, Blood 211 mg/dL (70-99); Magnesium, Blood 2.4 mg/dL (1.6-2.4); Phosphorus, Blood 1.9 mg/dL (2.5-4.9); Potassium, Blood 4.3 mmol/L (3.5-5.5); Sodium, Blood 141 mmol/L (136-145)
--- NOTE | 2021-04-13 06:42 | NUR ---
No acute clinical changes. Patient vented, no distress noted. Update given to daughter.
--- NOTE | 2021-04-13 10:18 | NUR ---
INTO ICU ROOM 2 PREP/ADMISSION FOR PEG TUBE STARTED.
--- NOTE | 2021-04-13 10:36 | NUR ---
04/13/21 1036 Juan Diego Espinosa PATIENT IN ICU 2 PROCEDURE STARTED AFTER TIME OUT.Bite Block Placed, 3-LEAD EKG REVIEWED WITH PHYSICIAN PRIOR TO START OF PROCEDURE DR PARK. . History, Chart, Medications and Allergies reviewed before start of procedure. MONITOR INTACT WITH CONTINUOUS PULSE OXIMETRY AND INTERMITTENT BP.
--- NOTE | 2021-04-13 11:07 | NUR ---
[id number]: ASSUMED PT CARE, PT OPENS EYES, DOES NOT TRACK, COUGH AND GAG PRESENT. PRECEDEX ON AT 0.7 SECONDARY TO HYPERVENTILATION WHEN TITRATED DOWN. NO MAJOR CHANGES TO VENT SETTINGS. TRACH SITE INTACT. AMIO GTT AT 0.5, HR SR WITH ECTOPY. PHOS BEING REPLACED. PEG CONSULT DONE, HAS CALLED DTR JOHN FOR CONSENT. PEG PLACED AT 1100. THIS RN GAVE PT 50MCG FENT PRIOR TO PROCEDURE, ASSISTANT OCEANOGRAPHER GAVE ANOTHER 50MCG DURING PROCEDURE. DTR UPDATED.
--- NOTE | 2021-04-13 18:13 | NUR ---
SHIFT SUMMARY: PT OPENS EYES, COUGH/GAGS, GRIMACES, PERRLA, BUT NOT ABLE TO FOLLOW COMMANDS OR DISPLAY PURPOSEFUL MOVEMENT. PRECEDEX GTT TITRATED DOWN TO 0.5, ATIVAN AND FENANYL GIVEN PRN FOR PAIN/ANXIETY AEB GRIMACES AND HYPERVENTILATION. VENT SETTINGS 26, 300, 10, 45% THROUGHOUT SHIFT. PEG PLACED SUCCESSFULLY. DTR AT BEDSIDE THIS AFTERNOON, UPDATED BY RN AND MD CHILDS. AT 1700 PT HR AFIB RVR IN 150-170S, MD CHILDS STAT NOTIFIED, PT GIVEN BOLUS OF AMIO AND AMIO GTT RESTARTED AT 1 MCG/MIN. FI02 INCREASED TO 10O DURING AFIB RVR TO DECREASE OXYGEN DEMAND. AT 1800 PT CONVERTED BACK TO SR IN 70S. PLAN TO KEEP ON AMIO GTT FOR ANOTHER 24 HRS. TF RESTARTED AT 1800. CT OF HEAD HELD ON DAY SHIFT DUE TO AFIB RVR. PLAN TO WEAN PT OFF PRECEDEX TONIGHT AND CT WHEN HR MAINTAINS SR FOR A COUPLE MORE HOURS.
[2021-04-14 04:44] LABS: BASOPHILS ABSOLUTE AUTO 0.02 K/mm3 (0.00-0.23); BASOPHILS PERCENT AUTO 0 % (0-2); EOSINOPHILS PERCENT AUTO 0 % (0-6); Hematocrit 32.5 % (33.0-51.0); Hemoglobin 9.7 g/dL (11.5-16.0); IMMATURE GRAN ABSOLUTE AUTO 0.12 K/mm3 (0.00-0.10); IMMATURE GRAN PERCENT AUTO 1 % (0-1); LYMPHOCYTES ABSOLUTE AUTO 1.16 K/mm3 (0.84-5.20); LYMPHOCYTES PERCENT AUTO 12 % (21-46); MONOCYTES ABSOLUTE AUTO 0.67 K/mm3 (0.16-1.47); MONOCYTES PERCENT AUTO 7 % (4-13); Mean Corpuscular HGB 27.8 pg (26.0-34.0); Mean Corpuscular HGB Conc 29.8 g/dL (31.5-36.5); Mean Corpuscular Volume 93 fL (80-100); Mean Platelet Volume 11.3 fL (9.1-12.4); NEUTROPHILS ABSOLUTE AUTO 7.87 K/mm3 (1.96-9.15); NEUTROPHILS PERCENT AUTO 80 % (41-73); NRBC ABSOLUTE 0.02 K/mm3 (0.00-0.02); NRBC Auto 0.2 /100 WBC (0.0-0.2); Platelet Count 200 K/mm3 (150-400); RDW Coefficient Variation 15.8 % (11.7-14.2); RDW Standard Deviation 52.8 fL (35.1-46.3); Red Blood Cell Count 3.49 M/mm3 (3.80-5.20); White Blood Cell Count 9.84 K/mm3 (4.00-11.30)
[2021-04-14 05:12] LABS: Anion Gap 3 mmol/L (6-16); Blood Urea Nitrogen 28 mg/dL (8-24); CO2, Blood 27 mmol/L (21-32); Calcium, Blood 9.2 mg/dL (8.5-10.1); Chloride, Blood 109 mmol/L (98-108); Creatinine, Blood 0.47 mg/dL (0.40-1.00); Glomerular Filtration Rate >60 (60-); Glucose, Blood 163 mg/dL (70-99); Magnesium, Blood 2.2 mg/dL (1.6-2.4); Phosphorus, Blood 2.1 mg/dL (2.5-4.9); Potassium, Blood 4.1 mmol/L (3.5-5.5); Sodium, Blood 139 mmol/L (136-145)
--- NOTE | 2021-04-14 07:24 | NUR ---
Amiodarone and cardizem drips infused continously during the shift with titration made to the cardizem but patient's HR as per the monitor remained aflutter between 90 to 170. MD made aware and 1000 ml NS bolus was given for fair result to the blood pressue which was low. ( SBP less and equal to the 80's) At 0630 patient heart rythme converted to NS in the 70's. Report given to patient's daughter, medical assembler and the incoming RN
--- NOTE | 2021-04-14 20:08 | NUR ---
Assumed care for patient at 1900. patient monitor showing svt in the 170's. Amiodarone and cardizem drips infusing. Repositioned. At about 1930 patient's converted to SR with heart rate in the 80's. Will continue to monitor.
[2021-04-15 04:15] LABS: BASOPHILS ABSOLUTE AUTO 0.02 K/mm3 (0.00-0.23); BASOPHILS PERCENT AUTO 0 % (0-2); EOSINOPHILS ABSOLUTE AUTO 0.01 K/mm3 (0.00-0.68); EOSINOPHILS PERCENT AUTO 0 % (0-6); Hematocrit 30.6 % (33.0-51.0); Hemoglobin 9.2 g/dL (11.5-16.0); IMMATURE GRAN ABSOLUTE AUTO 0.27 K/mm3 (0.00-0.10); IMMATURE GRAN PERCENT AUTO 2 % (0-1); LYMPHOCYTES ABSOLUTE AUTO 0.82 K/mm3 (0.84-5.20); LYMPHOCYTES PERCENT AUTO 7 % (21-46); MONOCYTES ABSOLUTE AUTO 0.84 K/mm3 (0.16-1.47); MONOCYTES PERCENT AUTO 8 % (4-13); Mean Corpuscular HGB Conc 30.1 g/dL (31.5-36.5); Mean Corpuscular Volume 93 fL (80-100); Mean Platelet Volume 11.3 fL (9.1-12.4); NEUTROPHILS ABSOLUTE AUTO 9.16 K/mm3 (1.96-9.15); NEUTROPHILS PERCENT AUTO 82 % (41-73); Platelet Count 197 K/mm3 (150-400); RDW Coefficient Variation 15.5 % (11.7-14.2); Red Blood Cell Count 3.29 M/mm3 (3.80-5.20); White Blood Cell Count 11.12 K/mm3 (4.00-11.30)
[2021-04-15 04:36] LABS: Alanine Aminotransfer (ALT/SGP 221 U/L (12-78); Albumin, Blood 1.2 g/dL (3.4-5.0); Albumin/Globulin Ratio 0.3 (0.8-1.8); Alk Phos 105 U/L (50-136); Anion Gap 5 mmol/L (6-16); Aspartate Aminotrans (AST/SGOT 53 U/L (12-37); Bilirubin, Total 0.7 mg/dL (0.1-1.0); Blood Urea Nitrogen 24 mg/dL (8-24); Bun/Creatinine Ratio 70.6 (12.0-20.0); CO2, Blood 28 mmol/L (21-32); Calcium, Blood 8.2 mg/dL (8.5-10.1); Chloride, Blood 104 mmol/L (98-108); Creatinine, Blood 0.34 mg/dL (0.40-1.00); Globulin, Blood 4.5 g/dL (2.2-4.0); Glomerular Filtration Rate >60 (60-); Glucose, Blood 282 mg/dL (70-99); Magnesium, Blood 1.9 mg/dL (1.6-2.4); Phosphorus, Blood 1.9 mg/dL (2.5-4.9); Potassium, Blood 3.4 mmol/L (3.5-5.5); Sodium, Blood 137 mmol/L (136-145); Total Protein, Blood 5.7 g/dL (6.4-8.2)
--- NOTE | 2021-04-15 07:28 | NUR ---
Patient's rthyme went from sinus to svt during this shift. The rthyme would convert to sinus after 1 to 2 mins. At 0500 the abnormal rhythm lasted for about 10 mins and lopressor 5 mg was administered with good result.
--- NOTE | 2021-04-15 08:00 | NUR ---
ASSUMED PT CARE AT 0700, NOC SHIFT RN HAS GIVEN 5 MG LOPRESSOR SECONDARY TO RECURRENT AFIB RVR/ SVT. PT HR NOW SR IN 70S WITH PVCS. DISCUSSED WITH RESIDENT THAT PT MAY BENEFIT BEING OFF LISINOPRIL AND STARTED ON ORAL AMIO AND ORAL BB FOR RATE/RHYTHM CONTROL. ORDERS OBTAINED. PT ON AMIO 0.5 GTT AND CARDIZEM 15 GTT PER MD ORDER. MD AWARE OF CONTRAINDICATIONS OF THESE TWO GTTS TOGETHER. VENT SETTINGS 26, 300, 10, 45%. TRACH INTACT. PT HYPERVENTILATES PERIODOICALLY, TREATED WITH ATIVAN PRN. LUNGS CLEAR/DIM. PERRLA, SIZE 5 BILAT. NO BLINK TO THREAT, NO TRACKING. PT WILL MOVE HEAD, COUGH AND GAG PRESENT, BUT NO PURPOSEFUL MOVEMENT EVEN TO NOXIOUS STIM. BS ACTIVE. PEG INTACT. TF AT GOAL. FC INTACT.
--- NOTE | 2021-04-15 13:44 | NUR ---
[id number] PT HR 180 SVT VS AFIB RVR, DIFFICULT TO DISCERN ON HEART MONITOR. PT WAS GIVEN 50MG METOPROLOL VIA PEG, HOWEVER HR SUSTAINING, BP STABLE. MD CRUZ INFORMED OF PT GIVEN, 5 MG IV METOPROLOL GIVEN STAT. HR RESOLVES INTO AFIB 65-85. PT GRANDAUGHTER AT BEDSIDE, UPDATED ON PT STATUS AND POC. FI02 INCREASED TO 100% WHEN PT IN RAPID HR, THEN BROUGHT BACK DOWN TO 45%
--- NOTE | 2021-04-15 18:24 | NUR ---
PT OPENS EYES SPONTANEOUSLY, PERRLA 5 BILAT, NO BLINK TO THREAT, COUGH AND GAG PRESENT. PT BUE FLACCID, HOWEVER AT END OF SHIFT RN ABLE TO ELICIT LLE FLEXION TO NOX STIM. PT NO LONGER ON ANY SEDATION GTTS. ATIVAN GIVEN X2, FENT X 1. PT ON AMIO AND CARDIZEM GTT THROUGHOUT SHIFT. STARTED ON METOPROLOL VIA PEG. AT 1300 PT WENT BACK INTO SVT, GIVEN 5 MG METOPROLOL IVP, RATE CORRECTED. DILT GTT TITRATED DOWN TO 10. PLAN FOR AMIO GTT TO REMAIN OFF WHEN THIS BAG IS FINISHED, AND TITRATE DOWN DILT GTT TOLERATED. PT REQUIRED ANOTHER PRN LOPRESSOR IV. MD CRUZ INFORMED, NEW ORDERS OBTAINED. TF AT GOAL. RECTAL TUBE WITH LIQUID STOOL. FC INTACT, PINK TINGE URINE. DTR UPDATED BY RN AND . PLAN FOR PALLIATIVE TO RECONNECT WITH DAUGHTER AND DISCUSS GOALS OF CARE. LYTES REPLACED PER PROTOCOL.
--- NOTE | 2021-04-15 22:38 | NUR ---
ASSUMPTION OF CARE REPORT RECEIVED FROM DAY SHIFT RN. PT TRACHED, ON VENT, NO SEDATION GTT. PRN ATIVAN AND FENTANYL. PT UNRESPONSIVE, DOES NOT TRACK OR FOLLOW COMMANDS. PT VENT SETTINGS 26/300/+10/40%. CURRENTLY PT IN SVT IN 160S-170S. DR CRUZ AT BEDSIDE, ORDERS RECEIVED TO GIVE PRN IV METOPROLOL AND PO METOPROLOL VIA PEG NOW. PT ON AMIO GTT @0.5 AND CARDIZEM @ 10. NO ACUTE DISTRESS NOTED. SEE SHIFT ASSESSMENT.
[2021-04-16 05:44] LABS: BASOPHILS ABSOLUTE AUTO 0.02 K/mm3 (0.00-0.23); BASOPHILS PERCENT AUTO 0 % (0-2); EOSINOPHILS PERCENT AUTO 0 % (0-6); Hematocrit 32.6 % (33.0-51.0); Hemoglobin 9.6 g/dL (11.5-16.0); IMMATURE GRAN ABSOLUTE AUTO 0.38 K/mm3 (0.00-0.10); IMMATURE GRAN PERCENT AUTO 3 % (0-1); LYMPHOCYTES PERCENT AUTO 10 % (21-46); MONOCYTES ABSOLUTE AUTO 0.84 K/mm3 (0.16-1.47); MONOCYTES PERCENT AUTO 7 % (4-13); Mean Corpuscular HGB 27.5 pg (26.0-34.0); Mean Corpuscular HGB Conc 29.4 g/dL (31.5-36.5); Mean Corpuscular Volume 93 fL (80-100); Mean Platelet Volume 11.3 fL (9.1-12.4); NEUTROPHILS ABSOLUTE AUTO 9.79 K/mm3 (1.96-9.15); NEUTROPHILS PERCENT AUTO 80 % (41-73); Platelet Count 248 K/mm3 (150-400); RDW Coefficient Variation 15.9 % (11.7-14.2); RDW Standard Deviation 52.8 fL (35.1-46.3); Red Blood Cell Count 3.49 M/mm3 (3.80-5.20); White Blood Cell Count 12.23 K/mm3 (4.00-11.30)
--- NOTE | 2021-04-16 06:14 | NUR ---
SHIFT SUMMARY PT RESTING IN BED THROUGHOUT THE NIGHT. PT C/O HEARTBURN PRN MAALOX GIVEN. HEARTBURN IMPROVED. LEVOPHED TITRATED FROM 5MCG TO 14MCG/MIN. MAP CURRENTLY 65 AND SBP 94. NO ACUTE EVENTS DURING THE SHIFT. REPORT TO BE GIVEN TO DAY SHIFT.
--- NOTE | 2021-04-16 06:17 | NUR ---
SHIFT SUMMARY PT REMAINS TRACHED AND VENTED. NO CHANGE TO VENT SETTINGS. AMIO GTT STOPPED AT 2200. CARDIZEM GTT WAS ON STANBY FOR 3 HOURS. CARDIZEM HAD TO BE RESTARTED DUE TO SVT/A-FIB RVR HR 160S-170S. PT REMAINS UNRESPONSIVE, NO PURPOSEFUL MOVEMENT NOTED. DAUGHTER JOHN CALLED, AND UPDATED ON PATIENT'S STATUS. REPORT TO BE GIVEN TO DAY SHIFT RN.
[2021-04-16 06:46] LABS: Alanine Aminotransfer (ALT/SGP 141 U/L (12-78); Albumin, Blood 1.3 g/dL (3.4-5.0); Albumin/Globulin Ratio 0.3 (0.8-1.8); Alk Phos 98 U/L (50-136); Anion Gap 3 mmol/L (6-16); Aspartate Aminotrans (AST/SGOT 16 U/L (12-37); Bilirubin, Total 0.6 mg/dL (0.1-1.0); Blood Urea Nitrogen 24 mg/dL (8-24); Bun/Creatinine Ratio 63.7 (12.0-20.0); CO2, Blood 31 mmol/L (21-32); Calcium, Blood 9.1 mg/dL (8.5-10.1); Chloride, Blood 105 mmol/L (98-108); Creatinine, Blood 0.38 mg/dL (0.40-1.00); Glomerular Filtration Rate >60 (60-); Glucose, Blood 145 mg/dL (70-99); Magnesium, Blood 2.1 mg/dL (1.6-2.4); Phosphorus, Blood 1.6 mg/dL (2.5-4.9); Potassium, Blood 4.4 mmol/L (3.5-5.5); Sodium, Blood 139 mmol/L (136-145); Total Protein, Blood 5.3 g/dL (6.4-8.2)
--- NOTE | 2021-04-16 09:59 | NUR ---
PT OPENS EYES, PERRLA 5, NO BLINK TO THREAT, COUGH, GAG, SWALLOW PRESENT. PT OPENS EYES TO NOX STIM ON EXTREMITIES, NO MOVEMENT NOTED X FOR LLE INWARD ROTATION THAT OCCURS SPONTANEOUSLY AND DOES NOT APPEAR PURPOSEFUL. PT PUT ON SBT AT APPROX 0945, 5/8 40%, TOLERATING WELL THUS FAR. TF AT GOAL VIA PEG. FC INTACT.
--- NOTE | 2021-04-16 13:30 | NUR ---
1320: RN BACK FROM LUNCH, PT ON TRACH COLLAR, HYPERVENTILATING 40-55 BPM, HR AFIB/FLUTTER 120-140S, SATS 87%. RT CALLED, RN REQUEST TO PUT BACK ON VENT. RT IN TO ASSESS PT.
--- NOTE | 2021-04-16 18:12 | NUR ---
MAJOR UPATES THIS SHIFT: NEURO STABLE UNCHANGED, OPEN EYES AND GRIMACES, COUGH/GAG PRESENT, OTHERWISE NO ACTIVITY. IV DILT AT 10MG/HR ALL SHIFT, METOPROLOL PEG FREQ INCREASED, PT GIVEN METOP. IV PRN X 2 FOR SUSTAINED HR GREATER THAN 150. PT STARTED ON PO/PEG DOSE AMIODARONE. HR IN AFIB/FLUTTER THE MAJOROITY OF SHIFT, BRIEF PERIODS OF NSR. PT ON SBT THIS AM, TOLERATING WELL, WEANED DOWN TO 5/5 40%. ATTEMPTED TRACH COLLAR BUT PT FATIGUED AFTER 45 MIN. LARGE AMOUNT THICK WHITE SECRETIONS. PHOS REPLACED. DTR IN TO VISIT. UPDATED ON PT STATUS AND POC.
--- NOTE | 2021-04-16 19:58 | NUR ---
ASSUMPTION OF CARE REPORT RECEIVED FROM DAY SHIFT RN. PT TRACHED AND ON VENT. PT UNRESPONSIVE, OPENS EYES TO STIMULUS BUT NO PURPOSEFUL MOVEMNENT NOTED. PT DOES NOT FOLLOW COMMANDS. VENT SETTINGS CURRENTLY 5/5 WITH FIO2 OF 40% PT A-FIB/NSR WITH HR IN 80S-90S CURRENTLY. PT REMAINS ON CARDIZEM GTT AT 10MG/HR. NO ACUTE DISTRESS NOTED. SEE SHIFT ASSESSMENT.
[2021-04-17 04:09] LABS: Hematocrit 35.2 % (33.0-51.0); Hemoglobin 10.6 g/dL (11.5-16.0); Mean Corpuscular HGB 27.6 pg (26.0-34.0); Mean Corpuscular HGB Conc 30.1 g/dL (31.5-36.5); Mean Corpuscular Volume 92 fL (80-100); Mean Platelet Volume 11.3 fL (9.1-12.4); NRBC ABSOLUTE 0.04 K/mm3 (0.00-0.02); NRBC Auto 0.3 /100 WBC (0.0-0.2); Platelet Count 270 K/mm3 (150-400); RDW Coefficient Variation 15.9 % (11.7-14.2); RDW Standard Deviation 51.9 fL (35.1-46.3); Red Blood Cell Count 3.84 M/mm3 (3.80-5.20)
[2021-04-17 04:40] LABS: BAND PERCENT MAN 3 % (0-8); BASOPHILS PERCENT MAN 0 % (0-2); EOSINOPHILS PERCENT MAN 0 % (0-6); LYMPHOCYTES PERCENT MAN 10 % (21-46); MONOCYTES ABSOLUTE MAN 0.56 K/mm3 (0.16-1.47); MONOCYTES PERCENT MAN 4 % (4-13); MYELOCYTE ABSOLUTE MAN 0.28 K/mm3 (0.00-0.00); MYELOCYTE PERCENT MAN 2 % (0-0); NEUTROPHILS ABSOLUTE MAN 11.76 K/mm3 (1.96-9.15); SEG NEUTROPHILS PERCENT MAN 81 % (41-73); TOTAL CELLS COUNTED 100
[2021-04-17 04:51] LABS: Alanine Aminotransfer (ALT/SGP 108 U/L (12-78); Albumin, Blood 1.5 g/dL (3.4-5.0); Albumin/Globulin Ratio 0.4 (0.8-1.8); Alk Phos 93 U/L (50-136); Anion Gap 4 mmol/L (6-16); Aspartate Aminotrans (AST/SGOT 21 U/L (12-37); Bilirubin, Total 0.5 mg/dL (0.1-1.0); Blood Urea Nitrogen 23 mg/dL (8-24); Bun/Creatinine Ratio 61.8 (12.0-20.0); CO2, Blood 31 mmol/L (21-32); Calcium, Blood 9.5 mg/dL (8.5-10.1); Chloride, Blood 104 mmol/L (98-108); Creatinine, Blood 0.37 mg/dL (0.40-1.00); Globulin, Blood 4.2 g/dL (2.2-4.0); Glomerular Filtration Rate >60 (60-); Glucose, Blood 132 mg/dL (70-99); Magnesium, Blood 2.3 mg/dL (1.6-2.4); Phosphorus, Blood 2.2 mg/dL (2.5-4.9); Potassium, Blood 4.3 mmol/L (3.5-5.5); Sodium, Blood 139 mmol/L (136-145); Total Protein, Blood 5.7 g/dL (6.4-8.2)
--- NOTE | 2021-04-17 06:41 | NUR ---
SHIFT SUMMARY PT REMAINS ON SPONTANEOUS 5/5 50% VIA VENT. TRACH CARE COMPLETED. PT STILL UNRESPONSIVE WITH NO PURPOSEFUL MOVEMENT. PT REMAINS IN NSR/AFIB 60S-110S. CARDIZEM DECREASED TO 5MG/HR. NO PRN IV METOPROLOL GIVEN ON THIS SHIFT. NO MOMENTS OF A-FIB RVR/SVT. REPORT TO BE GIVEN TO DAY SHIFT RN.
--- NOTE | 2021-04-17 09:36 | NUR ---
ASSUMED PT CARE AT 0700. PT NEURO STATUS LARGELY UNCHANGED, OPENS EYES TO VERBAL STIM, NO TRACKING, BLINK TO THREAT PRESENT, PERRLA 4. COUGH/GAG PRESENT, NO PURPOSEFUL MOVEMENT TO EXTREMITIES. NOT ABLE TO FOLLOW ANY COMMANDS. PT TOLERATING SBT WELL, 8 45%., CARDIZEM GTT ON AT 5MG THIS AM, PLACED ON SB HR WELL CONTROLLED 60-100. RHYTHM GOES BETWEEN SR AND AFIB. TF AT GOAL. PT AUTODIURESING. FC INTACT. DTR JOHN GIVEN UPDATE.
--- NOTE | 2021-04-17 14:30 | NUR ---
MD CRUZ UPDATED PT HR CONTINUES TO SUSTAIN IN AFIB RVR 160S, GIVEN 100MG TOTAL METOPROLOL VIA PEG, AND ADDITIONAL 5 MG METOPROLOL IV NOW. DILT UP TO 15, MD CRUZ. HEAD CT ON HOLD FOR NOW WHILE PT IN UNSTABLE STATE. [employer] ARCHITECT NOTIFIED. BROTHER AT BEDSIDE, UPDATED ON PT STATUS AND POC.
--- NOTE | 2021-04-17 15:18 | NUR ---
MD CRUZ AT BEDSIDE TO EVAL PT, AMIO BOLUS IV GIVEN PER ORDER, PLAN TO KEEP ON AMIO GTT FOR 24 HRS, TITRATE OFF CARDIZEM GTT ABLE. HOLD CT FOR NOW.
--- NOTE | 2021-04-17 18:22 | NUR ---
NO MAJOR CHANGES TO NEURO STATUS, PT OPENS EYES, BLINK TO THREAT PRESENT, COUGH/GAG/SWALLOW PRESENT, NO MOVEMENT TO EXTREMITIES, NOT FOLLOWING COMMANDS. PT HR REVERTED TO RAPID ATRIAL TACHYCARDIA DURING SHIFT, NOT RESOLVED WITH EXTRA PRN DOSES METOPROLOL IV, METOPROLOL PO/PEG DOSE INCREASE, AND MAX CARDIZEM DOSE GTT. PT SUSTAINED HR 170S FOR OVER 1 HR DESPITE INTERVENTIONS, MD CRUZ AT BEDSIDE, GIVEN AMIO BOLUS, THEN STARTED ON AMIO GTT, CONVERTED TO NSR IN 70S AND NORMOTENSION OBTAINED. CARDIZEM GTT TURNED OFF. PT ON SBT 02/17, DOWN 45% AT END OF SHIFT. COPIOUS THICK CALDERON SPUTUM. TF AT GOAL. RECTAL TUBE IN PLACE, FC INTACT. PLAN TO DISCUSS GOALS OF CARE TOMORROW. POSSIBLE REPEAT HEAD CT IF PT HEMODYNAMICALLY STABLE.
--- NOTE | 2021-04-17 19:51 | NUR ---
Assumed care. Bedside report recieved. Pt in bed, on ventilator via trach. Vent settings: spont 8/5, 45% Fi02. PICC line in TIA, IV pump settings: Amiodarone 1 mg/min, NS 10 ml/hr. Peg tube in place, Pivot 1.5 running at 35 ml/hr. Rectal tube in place, draining brown, liquid stools. Pantoja catheter in place, draining brandon urine. No acute needs noted at this time, will continue to monitor.
[2021-04-18 04:12] LABS: Hematocrit 37.7 % (33.0-51.0); Hemoglobin 11.7 g/dL (11.5-16.0); Mean Corpuscular HGB 28.3 pg (26.0-34.0); Mean Corpuscular Volume 91 fL (80-100); Mean Platelet Volume 11.4 fL (9.1-12.4); NRBC ABSOLUTE 0.09 K/mm3 (0.00-0.02); NRBC Auto 0.6 /100 WBC (0.0-0.2); Platelet Count 303 K/mm3 (150-400); RDW Coefficient Variation 15.9 % (11.7-14.2); RDW Standard Deviation 52.4 fL (35.1-46.3); Red Blood Cell Count 4.13 M/mm3 (3.80-5.20)
[2021-04-18 04:35] LABS: Anion Gap 6 mmol/L (6-16); Blood Urea Nitrogen 23 mg/dL (8-24); Bun/Creatinine Ratio 58.5 (12.0-20.0); CO2, Blood 30 mmol/L (21-32); Calcium, Blood 9.8 mg/dL (8.5-10.1); Chloride, Blood 101 mmol/L (98-108); Creatinine, Blood 0.39 mg/dL (0.40-1.00); Glomerular Filtration Rate >60 (60-); Glucose, Blood 103 mg/dL (70-99); Magnesium, Blood 2.2 mg/dL (1.6-2.4); Phosphorus, Blood 2.2 mg/dL (2.5-4.9); Potassium, Blood 4.1 mmol/L (3.5-5.5); Sodium, Blood 137 mmol/L (136-145)
[2021-04-18 05:04] LABS: BAND PERCENT MAN 4 % (0-8); BASOPHILS PERCENT MAN 0 % (0-2); EOSINOPHILS ABSOLUTE MAN 0.16 K/mm3 (0.00-0.68); EOSINOPHILS PERCENT MAN 1 % (0-6); LYMPHOCYTES ABSOLUTE MAN 0.97 K/mm3 (0.84-5.20); LYMPHOCYTES PERCENT MAN 6 % (21-46); METAMYELOCYTE ABSOLUTE MAN 0.16 K/mm3 (0.00-0.00); METAMYELOCYTE PERCENT MAN 1 % (0-0); MONOCYTES ABSOLUTE MAN 1.46 K/mm3 (0.16-1.47); MONOCYTES PERCENT MAN 9 % (4-13); MYELOCYTE ABSOLUTE MAN 0.48 K/mm3 (0.00-0.00); MYELOCYTE PERCENT MAN 3 % (0-0); NEUTROPHILS ABSOLUTE MAN 13.04 K/mm3 (1.96-9.15); SEG NEUTROPHILS PERCENT MAN 76 % (41-73); TOTAL CELLS COUNTED 100
--- NOTE | 2021-04-18 06:14 | NUR ---
Shift summary. Pt continues in bed, ventilated via trach. Vent settings: spont 8/5, 40% Fi02. Patient has PICC in TIA, IV pump settings: Amiodarone 0.5 mg/min, Sodium Phosphate 127 ml/hr, NS 10 ml/hr. Peg tube in place, Pivot 1.5 running at 35 ml/hr goal rate. Rectal tube in place, draining liquid brown stools. Pantoja catheter in place, draining brandon urine. Pt rested quietly throughout night with frequent productive coughing. No improvement in mentation during shift. See shift assessment for details. Will continue to monitor and report off to dayshift RN.
--- NOTE | 2021-04-18 08:32 | NUR ---
AM ASSESSMENT: PT OPENS EYES TO PAINFUL STIMULI AND GRIMACES. PUPILS 7 MM AND ERL. PT HAS COUGH, GAG, AND CORNEAL REFLEX. NO SPONTANEOUS MOVEMENT OF EXTREMITIES NOTED. RR 30-40'S AND PT COUGHING VERY FREQUENTLY. MED WITH FENTANYL 50 MCG IVP X 1-SEE EMAR. ONCE FENTANYL GIVEN, PT COUGHING LESS AND RR 18-20. LUNGS WHEEZY TO UPPER LOBES AND DECREASED TO BASES. MAINTAINS SATS>90% ON PS 8, PEEP 5, FIO2 40%. SUCTION PRODUCTIVE OF LARGE AMOUNT OF THICK, WHITE SECRETIONS. TRACH CARE DONE AND INNER CANULA CHANGED. SUTURES REMAIN INTACT AND STOMA SITE CLEAR. SMALL AMOUNT OF OLD, BLOODY DRAINAGE NOTED. ECG SHOWS SR WITH RATE 70-80'S. BP STABLE-AMIODARONE DRIP CONTINUES @ 0.5 MG/MIN-TO CONTINUE UNTIL APROXIMATELY 1530 TODAY.ABDOMEN OBESE WITH HYPERACTIVE BT'S X 4. PEG INSERTION WITH MODERATE AMOUNT OF SERO/SANG DRAINAGE-CLEANSED WITH STERILE WATER AND NEW DRAIN SPONGE APPLIED. PEG WITH SCANT RESIDUAL-PT TOLERATING PIVOT 1.5 @ 35 ML/HR. DSS HELD PT HAS MODERATE AMOUNT OF BROWN, LIQUID STOOL TO RECTAL TUBE. IBRAHIM WITH SMALL AMOUNT OF DARK, YELLOW URINE TO BSD. PT CHIVO AREA AND FOLDS SLIGHTLY RED-ANTI FUNGAL POWDER APPLIED.
--- NOTE | 2021-04-18 10:45 | NUR ---
HR 130'S TO 160'S AFIB WITH RVR. MED WITH ATIVAN 2 MG IVP AND FENTANYL 50 MCG IVP X 1. HR CONTINUED 140'S-MED WITH METOPROLOL 5 MG IVP X 1-HR 120'S-STILL AFIB. PT TRANSPORTED TO CT HEAD WITHOUT DIFFICULTY. SPUTUM AND STOOL SPECIMENS SENT.
[2021-04-18 13:00] LABS: C DIFFICILE DNA NEGATIVE (Negative)
--- NOTE | 2021-04-18 14:20 | NUR ---
PT PLACED ON TRACH COLLAR WITH FIO2 80%/8 LITERS-TRACH CUFF DEFLATED FOR APROXIMATELY 5 MINUTES. PT BECAME VERY DYSPNEIC, TACHYPNEIC, AND UTILIZING ACCESSORY MUSCLES TO BREATH-SATS DOWN TO 37%. PT PLACED BACK ON VENT:PS 8, PEEP 5, FIO2 40%-HR UP TP 140-160'S. MED WITH FENTANYL 50 MCG IVP X 1. AFTER SEVERAL MINUTES OF REST BACK ON THE VENT, SATS RETURNED TO THE 90'S.
--- NOTE | 2021-04-18 14:23 | NUR ---
Sat in on Care Conference with pt's family, Dr. Turner and Gilmar, and Supervisory Civil Engineer Tim. Pt currently has a trach, but isn't waking up as the team had hoped for. She hasn't been alert since she was initially placed on mechanical ventilation. She has been off of sedation for 8 days, with some spontaneous movements, even able to open her eyes, but not on command, and not able to track or follow commands. Concern regarding pt's mentation moving forward. Family is unsure about changing pt's status to comfort care, but have made it clear they would like to change pt's code status to DNR. Dr. Turner gives v/o for this. Family and care team to meet again this sunday to re-evaluate the situation, as comfort care may be the next logical step. Will have to wait and see.
--- NOTE | 2021-04-18 15:35 | NUR ---
Spiritual care visit conducted. I introduce visit with family in the ICU waiting rm and tamir urrutia code status conversation and later met with Jeannette and Zulma in patient's rm and provide therapeutic listening and prayer. They get tearful during the prayer but show signs of being encouraged. They voice appreciation to for the support. I will continue to assist in medical decision making and offering emotional/spiritual support.
--- NOTE | 2021-04-18 16:30 | NUR ---
HR 140-160'S AFIB WITH RVR. METOPROLOL DOSE PER PEG TUBE GIVEN EARLY. RR 40'S AND PT APPEARS AGITATED. PT EYES OPEN, BUT STILL NOT TRACKING OR FOLLOWING COMMANDS. NO PUPOSEFUL MOVEMENT NOTED. PT FAMILY MET WITH PALLIATIVE CARE AND DR. CRUZ EARLIER TODAY. SHE HAS BEEN MADE A DNR. FAMILY TO REASSESS AND MEET WITH PALLIATIVE CARE AND MD TO REASSESS ON SUNDAY.
--- NOTE | 2021-04-18 18:31 | NUR ---
PT RESTING QUIETLY ON LEFT SIDE. NO NOTED DISTRESS AT THIS TIME.PS 5, PEEP 5 FIO2 40%-SATS>90% CONTINUES WITH LARGE AMOUNT OF THICK TANISH SECRETIONS. HR 60-70'S SR. AMIODARONE INFUSION IS COMPLETE. NEW TF FORMULA-JEVITY 1.5 INITIATED @ 25CC HR-GOAL 40.
--- NOTE | 2021-04-18 19:09 | NUR ---
ASSUMPTION OF CARE REPORT RECEIVED FROM DAY SHIFT RN. PT IN BED, TRACHED ON VENT SPONTANEOUS 5/5, FIO2 @40%. PT DOES NOT FOLLOWS COMMANDS, DOES NOT TRACK. PT OFF CONTINOUS GTT EXCEPT KVO. SEE SHIFT ASSESSMENT.
[2021-04-19 05:18] LABS: Hemoglobin 11.8 g/dL (11.5-16.0); Mean Corpuscular HGB 28.4 pg (26.0-34.0); Mean Corpuscular HGB Conc 31.1 g/dL (31.5-36.5); Mean Corpuscular Volume 91 fL (80-100); Mean Platelet Volume 10.9 fL (9.1-12.4); NRBC ABSOLUTE 0.09 K/mm3 (0.00-0.02); NRBC Auto 0.6 /100 WBC (0.0-0.2); Platelet Count 288 K/mm3 (150-400); RDW Coefficient Variation 16.1 % (11.7-14.2); RDW Standard Deviation 51.8 fL (35.1-46.3); Red Blood Cell Count 4.16 M/mm3 (3.80-5.20)
[2021-04-19 05:35] LABS: Albumin, Blood 1.8 g/dL (3.4-5.0); Anion Gap 4 mmol/L (6-16); Blood Urea Nitrogen 20 mg/dL (8-24); Bun/Creatinine Ratio 50.4 (12.0-20.0); CO2, Blood 31 mmol/L (21-32); Calcium, Blood 9.5 mg/dL (8.5-10.1); Chloride, Blood 105 mmol/L (98-108); Glomerular Filtration Rate >60 (60-); Glucose, Blood 108 mg/dL (70-99); Phosphorus, Blood 2.3 mg/dL (2.5-4.9); Potassium, Blood 3.9 mmol/L (3.5-5.5); Sodium, Blood 140 mmol/L (136-145)
[2021-04-19 05:38] LABS: BAND PERCENT MAN 2 % (0-8); BASOPHILS PERCENT MAN 0 % (0-2); EOSINOPHILS ABSOLUTE MAN 0.28 K/mm3 (0.00-0.68); EOSINOPHILS PERCENT MAN 2 % (0-6); LYMPHOCYTES ABSOLUTE MAN 1.87 K/mm3 (0.84-5.20); LYMPHOCYTES PERCENT MAN 13 % (21-46); METAMYELOCYTE ABSOLUTE MAN 0.28 K/mm3 (0.00-0.00); METAMYELOCYTE PERCENT MAN 2 % (0-0); MONOCYTES ABSOLUTE MAN 0.72 K/mm3 (0.16-1.47); MONOCYTES PERCENT MAN 5 % (4-13); MYELOCYTE ABSOLUTE MAN 0.14 K/mm3 (0.00-0.00); MYELOCYTE PERCENT MAN 1 % (0-0); NEUTROPHILS ABSOLUTE MAN 11.08 K/mm3 (1.96-9.15); SEG NEUTROPHILS PERCENT MAN 75 % (41-73); TOTAL CELLS COUNTED 100
--- NOTE | 2021-04-19 06:15 | NUR ---
SHIFT SUMMARY PT REMAINS ON SBT 5/5 50%. NO CHANGES IN NEURO STATUS, PT DOES NOT FOLLOW COMMANDS, NO PURPOSEFUL MOVEMENT NOTED. PRN ATIVAN AND FENTANYL GIVEN. PT REMAINED IN SR THROUGH THE SHIFT, NO A-FIB RVR/SVT. JEVITY TUBE FEEDING INCREASED TO 40ML/HR (GOAL).JOHN DAUGHTER CALLED AT 0500 AND UPDATE PROVIDED ON MOTHER'S STATUS. NO ACUTE EVENTS OVERNIGHT. REPORT TO BE GIVEN TO DAY SHIFT RN.
--- NOTE | 2021-04-19 15:33 | NUR ---
Spiritual care visit conducted. Patient's sister, Fabiola, is bedside. She tells me about her love for her sister and tells many stories of them through the years. She also shares about their deep Druze ruth and how "Atul is the most important love" in the patient's life. Fabiola explains about the peace that the patient has expressed earlier because she knows the patient has no fear about with assurance about heaven in the after life. She states that if she gets better "she wins" and is the patient dies she will win as well because she will "be with Atul." I provide therapeutic listening and prayer. Fabiola responds well and shows signs of an elevated mood.
[2021-04-19 16:01] LABS: Source, Urine Catheter
[2021-04-19 16:12] LABS: Appearance, Urine Cloudy (Clear); Bilirubin, Urine Neg (Neg); Blood, Urine 4+ (Neg); Color, Urine Yellow (P-Yellow); Glucose Qualitative, Urine Neg (Neg); Ketones, Urine Neg (Neg); Leukocyte Esterase, Urine 1+ (Neg); Nitrite, Urine Neg (Neg); Protein, Urine 1+ (Neg); Urobilinogen, Urine 2+ (Normal)
[2021-04-19 16:48] LABS: Amorphous Mod (0-Heavy); Hyaline Casts 0-2 /lpf (0-2); White Blood Cells, Urine 0-2 /hpf (0-5)
[2021-04-19 16:49] LABS: Bacteria Few /hpf; Squamous Epithelial Cells Rare /hpf (Few)
--- NOTE | 2021-04-19 17:35 | NUR ---
NO REAL CHANGE WITH CAITLIN THROUGHOUT THE DAY FROM ASSUMING HER CARE AT 0700. HER NEURO STATUS IS THE SAME. NO TRACKING, NO FOLLOWING COMMANDS, NOTHING PURPOSEFUL AND NO WITHDRAWING FROM PAIN. PT REMAINED ON TRACH TO VENT ALL DAY AT SAME SETTINGS OF PEEP 5 AND 50% FIO2. SATS REMAINED LOW 90S ALL DAY. TF AT GOAL, NO RESIDUAL. RECTAL TUBE BURPED A FEW TIMES, SOEM OUTPUT BUT NOT MUCH. NEED TO BE CAREFUL WITH THE RECTAL TUBE AND POSITIONING BC HER SKIN IS GETTING RED AND THERE IS A SKIN TEAR AROUND THE RECTUM. IBRAHIM EXCHANGED TODAY DUE TO OBSTRUCTION AND NOT FLOWING. NOW FOWING WELL, YELLOW URINE PRESENT. TIA PICC REMAINS. DAUGHTER UPDATED ON THE PHONE TWICE. AUNT AT BEDSIDE TODAY DURING VISITING HOURS
--- NOTE | 2021-04-19 21:24 | NUR ---
ASSUMED CARE REPORT RECEIVED FROM VIRAL MIGUEL. PATIENT LYING IN BED W/ EYES CLOSED; FREQUENTLY COUGHING AND MOUTH OPEN. PATIENT IS MOVING HEAD SIDE TO SIDE OCCASSIONALLY. VENT VIA TRACH @ PS 5/5 50% W/ RR INMID 20'S- LOW 30'S AND SPO2 MID 90'S. TF INF VIA PEG TUBE @ GOAL RATE 40ML/HR W/ 30ML Q4H WATER FLUSHES AND NO RESIDUALS AT THIS TIME. NS TKO INF TO TIA PICC. IBRAHIM PATENT AND DRAINING DARK YELLOW SLIGHTLY CLOUDY URINE TO GRAVITY AND RECTAL TUBE DRAINING GREEN/BROWN STOOL.
[2021-04-20 03:39] LABS: Hematocrit 39.8 % (33.0-51.0); Hemoglobin 12.1 g/dL (11.5-16.0); Mean Corpuscular HGB 27.9 pg (26.0-34.0); Mean Corpuscular HGB Conc 30.4 g/dL (31.5-36.5); Mean Corpuscular Volume 92 fL (80-100); Mean Platelet Volume 10.8 fL (9.1-12.4); NRBC ABSOLUTE 0.04 K/mm3 (0.00-0.02); NRBC Auto 0.3 /100 WBC (0.0-0.2); Platelet Count 285 K/mm3 (150-400); RDW Coefficient Variation 16.4 % (11.7-14.2); RDW Standard Deviation 53.9 fL (35.1-46.3); Red Blood Cell Count 4.33 M/mm3 (3.80-5.20); White Blood Cell Count 15.98 K/mm3 (4.00-11.30)
[2021-04-20 04:01] LABS: Albumin, Blood 1.9 g/dL (3.4-5.0); Anion Gap 5 mmol/L (6-16); Blood Urea Nitrogen 18 mg/dL (8-24); Bun/Creatinine Ratio 41.5 (12.0-20.0); CO2, Blood 31 mmol/L (21-32); Chloride, Blood 102 mmol/L (98-108); Creatinine, Blood 0.43 mg/dL (0.40-1.00); Glomerular Filtration Rate >60 (60-); Glucose, Blood 126 mg/dL (70-99); Phosphorus, Blood 2.1 mg/dL (2.5-4.9); Potassium, Blood 3.9 mmol/L (3.5-5.5); Sodium, Blood 138 mmol/L (136-145)
[2021-04-20 04:21] LABS: BAND PERCENT MAN 4 % (0-8); BASOPHILS PERCENT MAN 0 % (0-2); EOSINOPHILS PERCENT MAN 0 % (0-6); LYMPHOCYTES % ATYPICAL MANUAL 1 % (0-0); LYMPHOCYTES ABSOLUTE MAN 1.43 K/mm3 (0.84-5.20); LYMPHOCYTES PERCENT MAN 8 % (21-46); METAMYELOCYTE ABSOLUTE MAN 0.31 K/mm3 (0.00-0.00); METAMYELOCYTE PERCENT MAN 2 % (0-0); MONOCYTES ABSOLUTE MAN 0.79 K/mm3 (0.16-1.47); MONOCYTES PERCENT MAN 5 % (4-13); MYELOCYTE ABSOLUTE MAN 0.31 K/mm3 (0.00-0.00); MYELOCYTE PERCENT MAN 2 % (0-0); SEG NEUTROPHILS PERCENT MAN 78 % (41-73); TOTAL CELLS COUNTED 100
--- NOTE | 2021-04-20 06:53 | NUR ---
SHIFT SUMMARY PATIENT HAD A PERIOD OF CONVERTING BACK AND FORTH BETWEEN AFIB/AFLUTTER. HR WOULD INCREASE FROM 70'S-90'S UP TO 150'S TO 180'S BEFORE CONVERTING BACK DOWN AGAIN. NO PRN MEDS GIVEN FOR THIS DUE TO PATIENT CONVERTING ON OWN; MONITORED THIS THROUGHOUT SHIFT AND PLACED STRIPS IN CHART. PATIENT COUGHED FREQUENTLY W/ MODERATE TO LARGE AMOUNTS OF SECRETIONS DEEP SUCTIONED. PICC DRESSING WAS CHANGED THIS MORNING. NO OTHER MAJOR CHANGES DURING SHIFT.
--- NOTE | 2021-04-20 14:30 | NUR ---
SUMMARY - Multiple family member conferences and phone calls held today with pt's Cindy-Zulma, Son-Rafael, Niece and another daughter. Case conferenced with Yue Fitzgerald and Darren after family came to decision to transition pt to comfort care. CindyZulma goodwin is pt's primary decision maker and she involved multiple siblings & others, who are in agreement that pt would not want her life prolonged by artificial means in her current state. After their questions were answered and process/procedure of comfort care explained, four family members are spending time at the bedside, prior to d/c of ventilator and transition to comfort care. RT notified and comfort care orders obtained and entered after discussing with bedside, RN pt's current medications and needs. Pal Care will remain available.
--- NOTE | 2021-04-20 15:02 | NUR ---
FAMILY WILL BE TRANSITIONING TO COMFORT CARE. ATROPINE DROPS GIVEN AND A SCOPE PATCH PLACED. WAITING FOR RT TO BE FREE AND THE FAMILY TO BE READY TO TAKE PT OFF THE VENT. TF WERE STOPPED AND EDUCATION GIVEN TO FAMILY PER REQUEST.
--- NOTE | 2021-04-20 15:47 | NUR ---
Spiritual care visit conducted. Patient's daughter and granddaughter are bedside. Patient looks as if she is deconditioning and family states this and after seeing patient looking so uncomfortable they decide that they would like the extubation done sooner rather than later. Patient's RN also administers pain medications. They had expressed their conflict over having to make the decision to go with comfort care. I talk with family about what the patient's body may be saying to us and that her body is making the decision. They appear to be comforted. I will continue to remain available to patient and family.
--- NOTE | 2021-04-20 15:53 | NUR ---
PT TRANSITIONED TO COMFORT CARE AT 1550. PUT ON MINIMAL TRACH COLLAR SETTINGS FOR HUMIDIFICATION AND COMFORT. SCOP AND ATROPINE DROPS GIVEN A BIT AGO. ORAL MORPHINE GIVEN AT TIME OF TRANSITION. DAUGHTER JOHN CALLED WHO WILL NOW COME BACK TO BEDSIDE/
--- NOTE | 2021-04-20 18:18 | NUR ---
PT RESTING COMFORTABLY. DAUGHTER AND GRANDDAUGHTER AT BEDSIDE. IBRAHIM AND RECTAL TUBE STILL IN PLACE FOR COMFORT.
--- NOTE | 2021-04-20 21:13 | NUR ---
Assumed care for patient in room 2. On comfort measures. Not responding. Quick assessment done. Saturation in the high 80's. Medicated for agonal breathing. Family at bedside.
--- NOTE | 2021-04-21 02:19 | NUR ---
Family present at bedside. At 0210, PatientRigo was pronounced by extension service specialist in charge and said nurse.Postmortem care done. Patient's cane was given to the family.
--- NOTE | 2021-04-21 06:28 | NUR ---
HOME DENTURES (UPPER) TRANSPORTED WITH PATIENT.
--- NOTE | 2021-04-21 07:08 | NUR ---
Spiritual care visit conducted 04/20/21. Late Note. End of life prayer provided after extubation. Grief support given. Family respond well and show signs of being comforted.
== END 2021-04-21 02:10 | DRG 4 ==
LOC: ER 00:55 → ICUE 04:03 → MEDS 04:03 → SURS 04:03 → MEDS 06:37 → SURS 03-27 10:22 → ICUE 03-27 17:02
PROVIDERS: Emergency Medicine; Family Medicine; Internal Medicine; Internal Medicine Critical Care Medicine; Pharmacist; Student in an Organized Health Care Education/Training Program; ADMIT Internal Medicine
PROC: 3E0333Z Introduction of Anti-inflammatory into Peripheral Vein, Percutaneous Approach (ICD-10-PCS; 2021-03-24)
PROC: XW033E5 Introduction of Remdesivir Anti-infective into Peripheral Vein, Percutaneous Approach, New Technology Group 5 (ICD-10-PCS; 2021-03-24)
PROC: 8E0ZXY6 Isolation (ICD-10-PCS; 2021-03-24)
PROC: 5A1955Z Respiratory Ventilation, Greater than 96 Consecutive Hours (ICD-10-PCS; principal; 2021-03-27)
PROC: 0BH18EZ Insertion of Endotracheal Airway into Trachea, Via Natural or Artificial Opening Endoscopic (ICD-10-PCS; 2021-03-27)
PROC: 05HM33Z Insertion of Infusion Device into Right Internal Jugular Vein, Percutaneous Approach (ICD-10-PCS; 2021-03-27)
PROC: 0B113F4 Bypass Trachea to Cutaneous with Tracheostomy Device, Percutaneous Approach (ICD-10-PCS; 2021-04-11)
PROC: 0BJ08ZZ Inspection of Tracheobronchial Tree, Via Natural or Artificial Opening Endoscopic (ICD-10-PCS; 2021-04-11)
PROC: 0DH63UZ Insertion of Feeding Device into Stomach, Percutaneous Approach (ICD-10-PCS; 2021-04-13)
DX: U07.1 COVID-19 (principal); J96.01 Acute respiratory failure with hypoxia; J12.82 Pneumonia due to coronavirus disease 2019; J15.5 Pneumonia due to Escherichia coli; J15.0 Pneumonia due to Klebsiella pneumoniae; A41.9 Sepsis, unspecified organism; R65.21 Severe sepsis with septic shock; I10 Essential (primary) hypertension; Z66 Do not resuscitate; Z51.5 Encounter for palliative care; K21.9 Gastro-esophageal reflux disease without esophagitis; F41.8 Other specified anxiety disorders; G89.29 Other chronic pain; M54.9 Dorsalgia, unspecified; Z68.37 Body mass index [BMI] 37.0-37.9, adult; Z98.51 Tubal ligation status; Z98.890 Other specified postprocedural states; F32.9 Major depressive disorder, single episode, unspecified; E66.01 Morbid (severe) obesity due to excess calories; Z88.5 Allergy status to narcotic agent; Z88.8 Allergy status to other drugs, medicaments and biological substances; Z79.899 Other long term (current) drug therapy; Z96.653 Presence of artificial knee joint, bilateral; E55.9 Vitamin D deficiency, unspecified; E83.39 Other disorders of phosphorus metabolism; E83.51 Hypocalcemia; E87.70 Fluid overload, unspecified; Z78.1 Physical restraint status
CPT/HCPCS: 31500; 31502; 36415; 36556; 36569; 36600; 70450; 71045; 80048; 80053; 80069; 80202; 81001; 82330; 82803; 82947; 83735; 84100; 84145; 84478; 84484; 85014; 85018; 85025; 85027; 86140; 87040; 87070; 87077; 87086; 87102; 87186; 87205; 87493; 93005; 93010; 93306; 94002; 94003; 94762; 96365; 96375; 99285-25; A9270; C1751; C9113; J0153; J0282; J0690; J1100; J1650; J1815; J1885; J1940; J2060; J2185; J2250; J2270; J2543; J2704; J2920; J2930; J3010; J3370; J3475; J3480; J7030; J7040; J7050; J7060; J7120